=== PATIENT | male | born 1965 | race Caucasian/White ===

== ENCOUNTER 2017-03-17 14:57 | Inpatient (IN) | payer MEDICAID ==
[2017-03-17] MEDS ORDERED: ADENOSINE 6 MG/2 ML VIAL ONE (15:07)
--- NOTE | 2017-03-17 15:07 | EDPHY ---
HPI/HX/ROS/PE/MDM Narrative: CHIEF COMPLAINT: Shortness of breath, chest pain HISTORY OF PRESENT ILLNESS: This is a homeless 51 y/o male arriving via EMS for complaining of worsening shortness of breath and chest pain onset early this morning around 03:00, about 12 hours ago. Patient was noted to be tachypneic as well as tachycardic in the field. He received CPAP as well as Solu-Medrol in route. The patient denies any history of known respiratory or cardiac diseases. He has associated nausea and a baseline productive cough. He denies syncope, abdominal pain, fever, palpitations, vomiting, diarrhea, urinary complaints, headache, lightheadedness or other associated symptoms. REVIEW OF SYSTEMS: Aside from elements discussed in the HPI, a comprehensive 10-point review of systems was reviewed and is negative. PAST MEDICAL HISTORY: Denies history of cardiac disease. SOCIAL HISTORY: Homeless. Lives in [place]. Medicaid patient. No PCP. One alcoholic drink today. VITAL SIGNS: Reviewed by me. Axillary temp is 37.2 C, HR 170 GENERAL: Disheveled, malnourished, appears uncomfortable, very dyspneic and tachypneic. HEENT: Atraumatic. Eyes: Mild icterus, no injection. Mouth: Dry mucous membranes. No erythema or lesions. Neck: supple with no adenopathy. LUNGS: Crackles and rhonchi in mid and lower left lobe on auscultation, no wheezes. Tachypnea with few-word dyspnea. CARDIAC: Extreme tachycardia, no murmurs auscultated. ABDOMEN: Soft, nontender, nondistended, bowel sounds normal. BACK: No CVA tenderness. EXTREMITIES: No trauma. No edema. Range of motion is normal throughout. NEURO: Alert and oriented, grossly nonfocal. SKIN: Warm and dry, no rash. PSYCHIATRIC: Normal mentation, no agitation. Portions of this note were transcribed by a medical care manager. I personally performed a history, physical exam, medical decision making, and confirmed accuracy of information the transcribed note. ED Course: This is a 51 y/o male presenting with a 12-hour history of progressive dyspnea, tachypnea, and tachycardia. Plan for EKG, Chest X-ray, labs, and sepsis workup. The 12 lead EKG was interpreted by myself. There is a wide complex tachycardia at a rate of 167. No prior EKGs are available. Morphology appears to be a right bundle branch block, however no P waves are noted. See hard copy and/or "tracemaster" electronic copy for interpretation. Patient is awake and alert. Blood pressure is stable. Cardiology consulted for extreme wide complex tachycardia. Stat portable chest x-ray: 1518: Chest X-ray demonstrates significant left-sided infiltrate and probable pneumonia. Sepsis w orkup begun. IV ceftriaxone [address] Kristopher Verduzco evaluated the patient's EKGs and suggest that the patient may be in atrial flutter with right bundle branch block. Consideration for synchronous cardioversion verses rate control was discussed. After receiving some fluids the patient's heart rate has trended slowly down to the upper 150s. Diltiazem 20 mg was given IV. 1534: Patients labs are positive for elevated lactic acid 16. He is hypokalemic at 2.4. Patient meets severe sepsis criteria. 30 cc per kg bolus of normal saline was ordered. Patient received 60 mEq of potassium by mouth and 10 mEq IV. Patient's troponin is mildly elevated at 0.040. Echocardiogram ordered by Cardiology. Repeat EKG demonstrates sinus tachycardia with a right bundle branch block. Severe Sepsis/Septic Shock Care Note The patient presents to the ED with pneumonia identified as an acute infection. The patient did have evidence of end-organ dysfunction and met criteria for severe sepsis. This condition was identified by myself at time of arrival. The patients vital signs are 107/87, 159, 34, O2 sat 95% on 2 L, temperature 37.2. The patient has a venous lactic acid performed within 3 hours of the identification of severe sepsis which was found to be 16.0. The patient has blood cultures drawn and received ceftriaxone IV, per the severe sepsis treatment protocol. The initial lactate was elevated and rechecked within 6 hours of the identification time of severe sepsis and found to be: 14. The patient also met criteria for septic shock because of lactic acid greater than 4.0. The patient received a 30 mL/kg bolus within 3 hours. After this intervention, the patients hypotension did improve. Focused examination demonstrated 118/86, 154, 38, 38.2 degrees C., crackles on the left anterior and posterior chest, extreme tachycardia, normal capillary refill, rapid pulses , and cool skin. The patient was transferred to the ICU under the care of hospitalist Dr Infante. Critical care time spent by me, Dr. Young, exclusively with this patient was 60 minutes, exclusive of PA time and exclusive of procedures. The organ system at risk was cardiovascular and respiratory and I gave IV fluids, IV antibiotics , antiarrhythmics, and transferred the patient to the ICU to prevent worsening of the patient's condition. MDM: Differential diagnoses for the patient's symptom complex was considered including but not limited to respiratory failure, ARDS, overwhelming infection, pneumonia, immunocompromise, acute coronary syndrome, cardiovascular collapse, severe sepsis. - Data Points Imaging Results: Imaging Impressions Chest X-Ray 03/17/17 15:05 Impression: Suspect dense pneumonia in the left midlung. Recommend follow-up chest radiograph in 4-6 weeks. If the patient does not clinically appear to have pneumonia, consider CT the chest with IV contrast now to exclude underlying mass. Imaging: Discussed imaging studies w/ call center coordinator Radiologist, I viewed and interpreted images myself Laboratory Results: Laboratory Results 03/17/17 15:00 03/17/17 15:00 03/17/17 03/17/17 03/17/17 15:00 15:00 15:00 WBC 6.77 10^3/uL 10^3/uL (3.80-9.50) RBC 5.30 10^6/uL 10^6/uL (4.40-6.38) Hgb 18.9 g/dL H g/dL (13.7-17.5) Hct 53.2 % H % (40.0-51.0) MCV 100.4 fL H fL (81.5-99.8) MCH 35.7 pg H pg (27.9-34.1) MCHC 35.5 g/dL g/dL (32.4-36.7) RDW 15.3 % H % (11.5-15.2) Plt Count 37 10^3/uL L 10^3/uL (150-400) MPV 12.1 fL H fL (8.7-11.7) Neut % (Auto) Not Reported Lymph % (Auto) Not Reported Frontier % (Auto) Not Reported Eos % (Auto) Not Reported Baso % (Auto) Not Reported Nucleat RBC Rel Count 0.3 % H % (0.0-0.2) Absolute Neuts (auto) Not Reported Absolute Lymphs (auto) Not Reported Absolute Monos (auto) Not Reported Absolute Eos (auto) Not Reported Absolute Basos (auto) Not Reported Absolute Nucleated RBC 0.02 10^3/uL H 10^3/uL (0-0.01) Immature Gran % Not Reported Seg Neutrophils % 56 % % Band Neutrophils % 27 % % Lymphocytes % 4 % % Monocytes % 13 % % Immature Gran # Not Reported Absolute Seg Neuts 3.79 10^/uL 10^/uL (1.70-6.50) Absolute Band Neuts 1.83 10^3/uL H 10^3/uL (0.00-0.70) Absolute Lymphocytes 0.27 10^3/uL L 10^3/uL (1.00-3.00) Absolute Monocytes 0.88 10^3/uL H 10^3/uL (0.30-0.80) Platelet Estimate DECREASED L (ADEQ) Oval Macrocytes 2+ H PT 14.7 SEC SEC (12.0-15.0) INR 1.15 (0.83-1.16) APTT 33.0 SEC SEC (23.0-38.0) VBG Lactic Acid 16.0 mmol/L H mmol/L (0.7-2.1) Sodium Potassium Chloride Carbon Dioxide Anion Gap BUN Creatinine Estimated GFR Glucose Calcium Total Bilirubin Conjugated Bilirubin Unconjugated Bilirubin AST ALT Alkaline Phosphatase Troponin I Total Protein Albumin 03/17/17 15:00 WBC RBC Hgb Hct MCV MCH MCHC RDW Plt Count MPV Neut % (Auto) Lymph % (Auto) Frontier % (Auto) Eos % (Auto) Baso % (Auto) Nucleat RBC Rel Count Absolute Neuts (auto) Absolute Lymphs (auto) Absolute Monos (auto) Absolute Eos (auto) Absolute Basos (auto) Absolute Nucleated RBC Immature Gran % Seg Neutrophils % Band Neutrophils % Lymphocytes % Monocytes % Immature Gran # Absolute Seg Neuts Absolute Band Neuts Absolute Lymphocytes Absolute Monocytes Platelet Estimate Oval Macrocytes PT INR APTT VBG Lactic Acid Sodium 137 mEq/L mEq/L (134-144) Potassium 2.4 mEq/L L* mEq/L (3.5-5.2) Chloride 93 mEq/L L mEq/L (97-110) Carbon Dioxide 10 mEq/l L mEq/l (22-31) Anion Gap 34 mEq/L H mEq/L (8-16) BUN 6 mg/dL L mg/dL (7-23) Creatinine 1.4 mg/dL H mg/dL (0.7-1.3) Estimated GFR 53 Glucose 91 mg/dL mg/dL (70-100) Calcium 9.4 mg/dL mg/dL (8.5-10.4) Total Bilirubin 2.1 mg/dL H mg/dL (0.1-1.4) Conjugated Bilirubin 0.9 mg/dL H mg/dL (0.0-0.5) Unconjugated Bilirubin 1.2 mg/dL H mg/dL (0.0-1.1) AST 102 IU/L H IU/L (17-59) ALT 54 IU/L IU/L (21-72) Alkaline Phosphatase 200 IU/L H IU/L (38-126) Troponin I 0.040 ng/mL H ng/mL (0.000-0.034) Total Protein 6.8 g/dL g/dL (6.3-8.2) Albumin 3.7 g/dL g/dL (3.5-5.0) Medications Given: Chlordiazepoxide HCl (Librium) 25 mg PO TID [facility] Stop: 09/13/17 21:59 Last Admin: 03/17/17 21:03 Dose: 25 mg Hydrocortisone (Solucortef) 50 mg IV Q6H [facility] Stop: 09/13/17 17:14 Last Admin: 03/17/17 18:26 Dose: 50 mg Thiamine HCl 100 mg/ Sodium (Chloride) 101 mls @ 202 mls/hr IV Q6H [facility] Stop: 09/13/17 17:14 Last Admin: 03/17/17 18:27 Dose: 101 mls Levofloxacin/Dextrose (Levaquin 750 Mg (Premix)) 150 mls @ 100 mls/hr IV DAILY [facility] PRN Reason: Protocol Stop: 04/16/17 17:59 Last Admin: 03/17/17 19:10 Dose: 150 mls Ascorbic Acid 1,500 mg/ Sodium (Chloride) 103 mls @ 206 mls/hr IV Q6H [facility] Stop: 09/13/17 17:59 Last Admin: 03/17/17 18:36 Dose: 103 mls Ertapenem 1 gm/ Sodium (Chloride) 100 mls @ 200 mls/hr IV DAILY@1930 [facility] PRN Reason: Protocol Stop: 04/16/17 19:29 Last Admin: 03/17/17 19:49 Dose: 100 mls Lorazepam (Ativan Injection) 1 mg IVP Q4HRS PRN PRN Reason: Agitation Stop: 09/13/17 17:39 Last Admin: 03/17/17 18:27 Dose: 1 mg Nicotine (Nicoderm Cq) 14 mg TD DAILY [facility] Stop: 09/13/17 17:59 Last Admin: 03/17/17 20:05 Dose: 14 mg Discontinued Medications Chlordiazepoxide HCl (Librium) 50 mg PO ONCE ONE Stop: 03/17/17 17:41 Last Admin: 03/17/17 18:27 Dose: 50 mg Diltiazem HCl (Cardizem 25 Mg/5 Ml Vial) 20 mg IVP EDNOW ONE Stop: 03/17/17 15:48 Last Admin: 03/17/17 16:01 Dose: 20 mg Ceftriaxone Sodium/Dextrose (Rocephin 1 Gm (Premix)) 50 mls @ 100 mls/hr IV EDNOW ONE PRN Reason: Protocol Stop: 03/17/17 15:48 Last Admin: 03/17/17 15:29 Dose: 50 mls Amiodarone HCl (Amiodarone Hcl) 100 mls @ 600 mls/hr IV EDNOW ONE Stop: 03/17/17 15:36 Last Admin: 03/17/17 16:12 Dose: Not Given Sodium Chloride (Ns) 2,000 mls @ 4,000 mls/hr 30 ml/kg infuse over 30 min ( 2000 ml) IV EDNOW ONE PRN Reason: Protocol Stop: 03/17/17 16:05 Last Admin: 03/17/17 15:51 Dose: 2,000 mls Potassium Chloride (Potassium Cl 10 Meq (Premix)) 100 mls @ 100 mls/hr IV Q1H [facility] Stop: 03/17/17 17:59 Last Admin: 03/17/17 18:27 Dose: 100 mls Potassium Chloride (Potassium Cl 10 Meq (Premix)) 100 mls @ 100 mls/hr IV ONCE ONE Stop: 03/17/17 16:56 Last Admin: 03/17/17 16:03 Dose: 100 mls Potassium Chloride (Klor-Con) 40 meq PO ONCE ONE Stop: 03/17/17 15:50 Last Admin: 03/17/17 18:27 Dose: Not Given Potassium Chloride (Klor-Con) 20 meq PO ONCE ONE Stop: 03/17/17 15:57 Last Admin: 03/17/17 16:21 Dose: 20 meq Potassium Chloride (Klor-Con) 40 meq PO ONCE ONE Stop: 03/17/17 18:26 Last Admin: 03/17/17 19:12 Dose: 40 meq Sodium Bicarbonate (Sodium Bicarbonate) 100 meq IV ONCE ONE Stop: 03/17/17 20:31 Last Admin: 03/17/17 21:00 Dose: 100 meq General Initial Vital Signs: Initial Vital Signs Temperature (C) 37.2 C 03/17/17 14:57 Heart Rate 171 H 03/17/17 14:57 Respiratory Rate 23 H 03/17/17 14:57 Blood Pressure 111/76 03/17/17 14:57 O2 Sat (%) 94 03/17/17 14:57 O2 Delivery Mode Nasal Cannula O2 (L/minute) 4 Allergies/Adverse Reactions: No Known Allergies Allergy (Unverified 12/02/15 08:23) Home Medications: Medication Instructions Recorded NK [No Known Home Meds] 12/02/15 Departure - Departure Disposition: [facility] Inpatient Acute Clinical Impression: Shortness of breath, White complex tachycardia, Severe sepsis Pneumonia Qualifiers: Pneumonia type: due to unspecified organism Laterality: left Lung location: lower lobe of lung Qualified Code(s): J18.1 - Lobar pneumonia, unspecified organism Condition: Serious Report Scribed for: Daksha Young Report Scribed by: Faye Lopez Date of Report: 03/17/17 Time of Report: 19:55
--- NOTE | 2017-03-17 15:11 | CPEKG ---
Heart Rate: 167 RR Interval: 359 QRSD Interval: 132 QT Interval: 320 QTC Interval: 534 P [place]: 0 QRS [place]: 128 T Wave [place]: 61 EKG Severity - ABNORMAL ECG - EKG Impression: SINUS TACHYCARDIA EKG Impression: RBBB AND LPFB EKG Impression: CONSIDER INFERIOR INFARCT Electronically Signed By: Lance Wylie 18-Mar-2017 12:20:16
[2017-03-17] MEDS ORDERED: AMIODARONE HCL 100 ML IV ONE (15:27)
[2017-03-17] MEDS ORDERED: NS 2,000 ML IV ONE (15:36)
[2017-03-17 15:42] LABS: ALANINE AMINOTRANSFERASE 54 IU/L (21-72); ALBUMIN 3.7 g/dL (3.5-5.0); ALKALINE PHOSPHATASE 200 IU/L (38-126); ANION GAP 34 mEq/L (8-16); ASPARTATE AMINOTRANSFERASE 102 IU/L (17-59); BILIRUBIN,TOTAL 2.1 mg/dL (0.1-1.4); BILIRUBIN-CONJUGATED 0.9 mg/dL (0.0-0.5); BILIRUBIN-UNCONJUGATED 1.2 mg/dL (0.0-1.1); CALCIUM 9.4 mg/dL (8.5-10.4); CARBON DIOXIDE 10 mEq/l (22-31); CHLORIDE 93 mEq/L (97-110); CREATININE 1.4 mg/dL (0.7-1.3); GLOMERULAR FILTRATION RATE 53; GLUCOSE 91 mg/dL (70-100); SODIUM 137 mEq/L (134-144); TOTAL PROTEIN 6.8 g/dL (6.3-8.2)
[2017-03-17 15:44] LABS: ABSOLUTE NRBC COUNT 0.02 10^3/uL (0-0.01); ADD DIFF? YES; ADD MORPH? NO; ATYPICAL LYMPHOCYTE FLAG 0 (0-99); FRAGMENT RBC FLAG 0 (0-99); HEMATOCRIT 53.2 % (40.0-51.0); HEMOGLOBIN 18.9 g/dL (13.7-17.5); LIPEMIA HEMOLYSIS FLAG 90 (0-99); MEAN CELL HEMOGLOBIN 35.7 pg (27.9-34.1); MEAN CELL HEMOGLOBIN CONCENTR. 35.5 g/dL (32.4-36.7); MEAN CELL VOLUME 100.4 fL (81.5-99.8); MEAN PLATELET VOLUME 12.1 fL (8.7-11.7); NRBC-AUTO% 0.3 % (0.0-0.2); PLATELET CLUMPS FLAG 0 (0-99); RED CELL DISTRIBUTION WIDTH 15.3 % (11.5-15.2)
[2017-03-17 15:45] LABS: POTASSIUM 2.4 mEq/L (3.5-5.2)
[2017-03-17 15:46] LABS: INR 1.15 (0.83-1.16); PROTIME(PATIENT) 14.7 SEC (12.0-15.0)
[2017-03-17 15:47] LABS: ADD SCAN? NO; LEFT SHIFT FLG 300 (0-99); PLATELET COUNT 37 10^3/uL (150-400)
[2017-03-17] MEDS ORDERED: DILTIAZEM 25 MG/5 ML VIAL IVP ONE ×2 (15:47)
[2017-03-17] MEDS ORDERED: POTASSIUM CL 20 MEQ TAB PO ONE ×3 (15:49→18:25)
[2017-03-17] MEDS ORDERED: POTASSIUM Cl (KCl) 10 MEQ/100 ML BAG IV ONE (15:57)
[2017-03-17] MEDS ORDERED: POTASSIUM Cl (KCl) 100 ML IV ONE (15:57)
--- NOTE | 2017-03-17 16:17 | CPEKG ---
Heart Rate: 141 RR Interval: 426 P-R Interval: 108 QRSD Interval: 136 QT Interval: 360 QTC Interval: 552 P [place]: 0 QRS [place]: 107 T Wave [place]: 57 EKG Severity - ABNORMAL ECG - EKG Impression: SINUS TACHYCARDIA EKG Impression: RBBB AND LPFB Electronically Signed By: Lance Wylie 18-Mar-2017 12:19:55
[2017-03-17 16:32] LABS: MACROCYTES 2+; PLATELET ESTIMATE DECREASED (ADEQ)
--- NOTE | 2017-03-17 16:33 | ECHO ---
[id number] + + [address] : : [place] [address] : : [phone] + + Adult Echocardiographic Report + -+ :Name: Nishant TOBAR Date: 03/17/2017 04:11 PM : : Hospital Admission Number: [id number] Location: E R: :: 1965 Gender: Male : :Age: 51 yrs Race: WH,UN : :Reason For Study: sob elev trop : :History: sob tachy : + -+ MMode/2D Measurements & Calculations LVIDd: 4.0 cm FS: 23.8 % Ao root diam: 3.2 cm LVIDs: 3.0 cm EDV(Teich): 68.8 ml ESV(Teich): 35.8 ml EF(Teich): 48.0 % Normal Measurement Values: + + :LVIDd (3.5-5.7cm) IVSd (0.6-1.1cm) LVPWd (0.6-1.1cm) Aortic Root (2.0-3.7cm)Left Atrium (1.5-4.0cm): :LV Vol(d) (76-115ml) LV Vol(s) (29-48ml) Ejec Fraction (50-65%)PV Gilbert (0.6- 1.2m/s) TV [place] (0.4-1.0m/s) : :MV E [place] (0.8-1.0m/s)MV A [place] (0.3-1.0m/s)LVOT [place] (0.7-1.2m/s) Asc Ao Gilbert ( 0.9-1.8m/s) : + + Doppler Measurements & Calculations Ao V2 max: 143.9 cm/sec LV V1 max: 104.6 cm/sec Ao max P.3 mmHg LV V1 max P.4 mmHg Left Ventricle The left ventricle is normal in size. The left ventricular ejection fraction is normal. Septal motion is consistent with conduction abnormality. Right Ventricle The right ventricle is normal in size and function. Atria The left atrial size is normal. Right atrial size is normal. Mitral Valve The mitral valve is normal in structure and function. There is no mitral valve stenosis. There is no mitral regurgitation noted. Tricuspid Valve The tricuspid valve is normal in structure and function. There is no tricuspid stenosis. No tricuspid regurgitation. Aortic Valve The aortic valve is not well visualized. There is no aortic stenosis. There is no aortic insufficiency. Pulmonic Valve The pulmonic valve is not well visualized. Great Vessels The aortic root is normal size. Pericardium/Pleural There is no pericardial effusion. Conclusion A two-dimensional transthoracic echocardiogram with M-mode and Doppler was performed. The study was technically difficult. Tachycardia. The left ventricular ejection fraction is normal. Final Reading Physician: Pedro Brown signed on 03/17/2017 04:31 PM Ordering Physician: Miller Pitts Performed By: Lovely Gutierrez
[2017-03-17] MEDS: POTASSIUM Cl (KCl) 100 ML IV SCH ×2 (16:59→18:27)
[2017-03-17 17:03] LABS: COLOR YELLOW; LEUKOCYTE ESTERASE,URINE NEGATIVE (NEGATIVE); NITRITE,URINE NEGATIVE (NEGATIVE)
[2017-03-17 17:08] LABS: HYALINE CASTS 15-25 /lpf (0-1); MUCUS TRACE /lpf (NONE-1+); RBC,URINE 50-182 /hpf (0-3)
[2017-03-17] MEDS ORDERED: ONDANSETRON DISINTEGRATING 4 MG TAB PO PRN (17:14)
[2017-03-17] MEDS ORDERED: ACETAMINOPHEN 325 MG TAB PO PRN (17:14)
[2017-03-17] MEDS ORDERED: ONDANSETRON 4 MG/2 ML VIAL IVP PRN (17:14)
[2017-03-17] MEDS ORDERED: [UNRECOGNIZED DRUG - REMARK] IV SCH (17:15)
[2017-03-17] MEDS ORDERED: NS 1,000 ML IV SCH (17:15)
--- NOTE | 2017-03-17 17:38 | GHP ---
[f rep st] HISTORY AND PHYSICAL DATE OF ADMISSION: 03/17/2017 CHIEF COMPLAINT: Tachycardia, shortness of breath. HISTORY OF PRESENT ILLNESS: This is a 51-year-old homeless gentleman who came to the [facility] by EMS. Apparently he had been having shortness of breath for at least a night. Chest x-ray here shows a significant left pneumonia. His EKG shows a tachycardia with a probable underlying rig ht bundle branch block. After fluids sinus tachycardia was diagnosed. We subsequently got an echoca rdiogram that showed hyperdynamic LV function. No pericardial effusion. Some dyssynchrony of the se ptal wall, but no clear-cut ischemia. The patient after receiving approximately 3 units of fluid sta rted to urinate and he is speaking at this time. He is feeling better. He is not having any chest p ain or other issues. He takes no medicines. His laboratory profile had a lactic acid of 16 and a potassium of 2.4. He is on a sepsis protocol pe r the hospitalist. His BUN is 6, his creatinine is 1.4. His white count is 6 and hemoglobin of 18. PAST MEDICAL HISTORY: Noncontributory. REVIEW OF SYSTEMS: Patient is homeless and denies any ongoing active GI bleed, chest pain, or other issues at this point. He seems to be resting comfortably, but does not appear to engage in active ans wering of multiple questions. PHYSICAL EXAMINATION: GENERAL: Disheveled, middle-aged male. LUNGS: Showed abnormal breath sounds in the left midlobe. HEART: He had a tachycardic rhythm. Had no edema. EXTREMITIES: He moved al l extremities. NEUROLOGIC: He was answering questions appropriately and voicing no complaints. ASSESSMENT: 1. Tachycardia with abnormal EKG. I suspect the patient has an underlying right bundle branch block pattern with what appears to be a sinus tachycardia at this time. He is receiving fluids. Echocard iogram shows normal LV function without clear-cut ischemic wall motion abnormality or significant kathy vular heart disease. The patient should be able to tolerate volume loading. 2. Probable left lobe pneumonia with a sepsis profile. This is being followed by the ER physician rayray hernandez the torpedo shooter. 3. Homelessness. Suspect alcoholism at least looking at the note from the emergency room physician. PLAN: Continue fluid support at this time. Rhythm control. We will deal with other arrhythmias as needed. Once patient is through infectious etiology, can further discuss more. If he is having any ongoing cardiac symptoms which he is not relating at this time, possibly exercise stress testing coul d be indicated, but at this point no need for cardiac acute intervention. The case was discussed with Dr. Young and Dr. Infante. /[id number]/MODL
[2017-03-17] MEDS ORDERED: chlordiazePOXIDE 25 MG CAP PO ONE (17:40)
--- NOTE | 2017-03-17 18:23 | GHP ---
[f rep st] HISTORY AND PHYSICAL DATE OF ADMISSION: 03/17/2017 CHIEF COMPLAINT: Shortness of breath and chest pain. HISTORY OF PRESENT ILLNESS: A 51-year-old male with limited past medical history, currently homeless , who presents with his report sudden onset of shortness of breath, nonproductive cough, and left-oracio ed chest pain. The patient reports being in his normal state of health the day prior to presentation with no limitations in his activity secondary to shortness of breath. The patient then developed brody dden onset. The patient denies any nausea, vomiting. Denies any changes in his bowel habits, diarrh ea, blood in his stools, dysuria. Does endorse muscle aches and pains and subjective fevers and chil ls. PAST MEDICAL HISTORY: None. SOCIAL HISTORY: Patient smokes a half a pack of cigarettes per day. Reports 2 beers per day. Denie s illicit drugs or marijuana. FAMILY HISTORY: Negative per his report of lung and heart disease. REVIEW OF SYSTEMS: A 10-point review of systems is negative with the exception of that reported in t he HPI. PHYSICAL EXAMINATION: VITAL SIGNS: Blood pressure is 109/78, heart rate 159, respiratory rate 34, 9 3% on 2 L. Febrile at 38.3. GENERAL: This is a disheveled man, tremulous in bed. HEENT: Notable for poor dentition. Dry mucous membranes. Eye exam is negative for any icterus. CARDIAC: Patient is tachycardic but regular. PULMONARY: Has rhonchi at bilateral bases, left greater than right. No wheezing is appreciated. GASTROINTESTINAL: Positive bowel sounds. ABDOMEN: Soft. MUSCULOSKELETA L: Negative for any lower extremity edema. SKIN: Negative for any rashes. NEUROLOGIC: Patient is very tremulous with tongue fasciculations. Appears alert and oriented x3. PSYCHIATRIC: Cooperativ e on interview and examination. DATA: White count 6.7, hematocrit 53.2, MCV 104, platelet count of 37. Sodium 137, potassium 2.4, c reatinine 1.4. Anion gap is 34. BUN of 6. Troponin 0.040. Urinalysis shows 50 to 182 red blood ce lls with very elevated hyaline casts. Chest x-ray, which I personally reviewed and interpreted, show s a lobular infiltrate on the left. EKG, which I personally reviewed and interpreted, shows sinus ta chycardia with right bundle branch block. Heart rate in the 140s. ASSESSMENT AND PLAN: This is a 51-year-old male, presenting with shortness of breath and tachycardia . 1. Sepsis. The patient is tachycardic, febrile, presumed source pulmonary. Will empirically treat with intravenous antibiotics. Blood cultures have been obtained from the emergency department, aggre ssive fluid resuscitation, and the sepsis protocol has been initiated. Intravenous steroids have bee n started by Pulmonary Critical Care as well as intravenous vitamin supplementation. 2. Sinus tachycardia. I suspect this is likely multifactorial, both dehydration, sepsis, and underl kamilah alcohol withdrawal. We will treat all 3 and follow patient's heart rates. Cardiology has evalu ated the patient in the emergency department. The patient has stable blood pressures and will not be cardioverted at this time. They have recommended the use of diltiazem if needed overnight. 3. Alcohol use/abuse. Suspect the patient's intake is higher than he originally describes as he is tremulous with tongue fasciculations on examination, has a macrocytosis, thrombocytopenia. Will init iate the Clinical [place] Withdrawal Assessment protocol with Librium and p.r.n. Ativan. Follow th e patient's vital signs closely. The patient is receiving intravenous thiamine appropriately upon ar rival to the floor. 4. Severe thrombocytopenia. Suspect this may be marrow related from alcohol abuse. The patient is not acutely bleeding. We will hold Lovenox prophylaxis at this time and follow patient clinically. 5. Acute kidney injury, suspect secondary to hypovolemia. We will fluid resuscitate and recheck. 6. Anion gap metabolic acidosis secondary to lactic acid. The patient is receiving aggressive fluid resuscitation. We will follow the patient's acid/base in a few hours. 7. Hypokalemia. Suspect likely nutritionally related. Patient denies any diarrhea or nausea and vo miting. The patient is receiving both p.o. and intravenous repletion. Will follow patient's electro lytes closely overnight. 8. Transaminitis, mild elevation in the AST with a total bilirubin of 2.1. This would be consistent with alcohol based pattern. Can recheck in the morning. 9. Indeterminate troponin. Patient is quite tachycardic upon presentation, likely demand ischemia. We will follow the patient's troponins overnight. Would not stress test at this time. Wait to foll ow his symptoms when we have his heart rates under better control. 10. Macrocytosis. Suspect this is likely alcohol related. Patient is receiving intravenous thiamin e. Can check B12 and folate. 11. Prophylaxis. Holding Lovenox secondary to severe thrombocytopenia. DIET: Regular as tolerated. DISPOSITION: I expect greater than 2 midnights as the patient is presenting septic from a pulmonary source. I have discussed the case with the emergency room physician and Cardiology. Patient will be triaged to the ICU for aggressive treatment of sepsis. /[id number]/MODL
[2017-03-17] MEDS: HYDROCORTISONE 100 MG/2 ML VIAL IV SCH (18:26)
[2017-03-17] MEDS: LORazepam 2 MG/ML INJ IVP PRN (18:27)
[2017-03-17] MEDS: THIAMINE HCL 100 MG in NS 100 ML IV SCH (18:27)
[2017-03-17] MEDS: NS IV SCH (18:36)
[2017-03-17] MEDS: ASCORBIC ACID IV SCH (18:36)
[2017-03-17] MEDS ORDERED: ERTAPENEM 1 GM in NS 100 ML IV SCH (19:30)
[2017-03-17 20:04] LABS: BICARBONATE 12 mEq/L (22-26); MEASURED OXYGEN SATURATION 93 % (92-95); PCO2 33 mmHg (34-38); PO2 88 mmHg (65-75); TCO2 13 mEq/L (23-27)
[2017-03-17] MEDS: NICOTINE 14 MG/24 HR PATCH TD SCH (20:05)
[2017-03-17 20:08] LABS: O2 CONCENTRATIION 15 % (0-100); P/F RATIO 587 RATIO
[2017-03-17 20:13] LABS: ANION GAP 20 mEq/L (8-16); CALCIUM 7.5 mg/dL (8.5-10.4); CARBON DIOXIDE 14 mEq/l (22-31); CHLORIDE 103 mEq/L (97-110); CREATININE 1.1 mg/dL (0.7-1.3); GLOMERULAR FILTRATION RATE > 60; GLUCOSE 77 mg/dL (70-100); SODIUM 137 mEq/L (134-144)
[2017-03-17 20:28] LABS: POTASSIUM 2.7 mEq/L (3.5-5.2)
[2017-03-17] MEDS ORDERED: NA BICARBONATE 50 MEQ/50 ML VIAL IV ONE ×2 (20:30→23:50)
[2017-03-17] MEDS: chlordiazePOXIDE 25 MG CAP PO SCH (21:03)
[2017-03-17 21:37] LABS: MIXED VENOUS O2 SATURATION 87 % (65-75)
[2017-03-17] MEDS ORDERED: PROTOCOL MAGNESIUM 1 DOSE IV PRN (22:57)
[2017-03-17] MEDS ORDERED: NOREPINEPHRINE/NS 4 MG/500 ML BAG IV ONE (23:15)
[2017-03-17] MEDS ORDERED: NOREPINEPHRINE/NS 500 ML IV SCH (23:30)
[2017-03-17] MEDS ORDERED: ACETAMINOPHEN 650 MG SUPP PR PRN (23:30)
[2017-03-17 23:40] LABS: BASE EXCESS -12.6 mEq/L (-2.5-2.5); BICARBONATE 17 mEq/L (22-26); MEASURED OXYGEN SATURATION 88 % (92-95); PCO2 54 mmHg (34-38); PO2 73 mmHg (65-75); TCO2 19 mEq/L (23-27)
[2017-03-17 23:41] LABS: O2 CONCENTRATIION 100 % (0-100); P/F RATIO 73 RATIO
[2017-03-17 23:48] LABS: % IMMATURE GRANULYOCYTES 0.6 % (0.0-1.1); ABSOLUTE IMMATURE GRANULOCYTES 0.01 10^3/uL (0.00-0.10); ABSOLUTE NRBC COUNT 0.02 10^3/uL (0-0.01); ADD DIFF? NO; ADD MORPH? YES; ADD SCAN? YES; ATYPICAL LYMPHOCYTE FLAG 0 (0-99); FRAGMENT RBC FLAG 0 (0-99); HEMATOCRIT 43.7 % (40.0-51.0); HEMOGLOBIN 14.6 g/dL (13.7-17.5); LIPEMIA HEMOLYSIS FLAG 80 (0-99); MEAN CELL HEMOGLOBIN 35.6 pg (27.9-34.1); MEAN CELL HEMOGLOBIN CONCENTR. 33.4 g/dL (32.4-36.7); MEAN CELL VOLUME 106.6 fL (81.5-99.8); MEAN PLATELET VOLUME 11.5 fL (8.7-11.7); PLATELET CLUMPS FLAG 10 (0-99); RED CELL DISTRIBUTION WIDTH 15.4 % (11.5-15.2)
[2017-03-17 23:52] LABS: LEFT SHIFT FLG 300 (0-99); NRBC-AUTO% 1.3 % (0.0-0.2)
[2017-03-17 23:53] LABS: PLATELET COUNT 18 10^3/uL (150-400)
[2017-03-17 23:57] LABS: INR 1.68 (0.83-1.16); PROTIME(PATIENT) 19.8 SEC (12.0-15.0)
[2017-03-17 23:58] LABS: APTT 48.1 SEC (23.0-38.0)
[2017-03-18 00:03] LABS: ANION GAP 9 mEq/L (8-16); CALCIUM 6.6 mg/dL (8.5-10.4); CARBON DIOXIDE 19 mEq/l (22-31); CHLORIDE 110 mEq/L (97-110); CREATININE 0.8 mg/dL (0.7-1.3); GLOMERULAR FILTRATION RATE > 60; SODIUM 138 mEq/L (134-144)
[2017-03-18 00:19] LABS: GLUCOSE 25 mg/dL (70-100)
[2017-03-18 00:20] LABS: MAGNESIUM 0.7 mg/dL (1.6-2.3)
[2017-03-18] MEDS ORDERED: MAGNESIUM SULF 2 GM/WATER 50 ML IV ONE (00:25)
[2017-03-18] MEDS ORDERED: D10W 250 ML PRN HYPOGLYCEMIA IV ONE ×2 (00:30→05:15)
[2017-03-18] MEDS ORDERED: PROTOCOL POTASSIUM 1 DOSE MISC PRN ×2 (01:00)
[2017-03-18] MEDS: HYDROCORTISONE 100 MG/2 ML VIAL IV SCH ×4 (01:08→18:37)
[2017-03-18] MEDS: ASCORBIC ACID IV SCH ×4 (01:09→19:02)
[2017-03-18] MEDS: NS IV SCH ×4 (01:09→19:02)
[2017-03-18] MEDS: THIAMINE HCL 100 MG in NS 100 ML IV SCH ×4 (01:09→18:37)
[2017-03-18 01:18] LABS: SCAN POSITIVE
[2017-03-18 01:30] LABS: BASE EXCESS -10.4 mEq/L (-2.5-2.5); BICARBONATE 17 mEq/L (22-26); MEASURED OXYGEN SATURATION 92 % (92-95); PCO2 41 mmHg (34-38); PO2 75 mmHg (65-75); TCO2 18 mEq/L (23-27)
[2017-03-18 01:32] LABS: BIPAP YES; O2 CONCENTRATIION 70 % (0-100); P/F RATIO 107 RATIO
[2017-03-18 01:33] LABS: EXP PRESSURE 5; INSP PRESSURE 18
[2017-03-18] MEDS: POTASSIUM Cl (KCl) 50 ML IV SCH ×5 (01:33→15:43)
[2017-03-18 01:39] LABS: MACROCYTES 1+; PLATELET ESTIMATE DECREASED (ADEQ)
[2017-03-18 02:37] LABS: BASE EXCESS -7.3 mEq/L (-2.5-2.5); BICARBONATE 18 mEq/L (22-26); MEASURED OXYGEN SATURATION 96 % (92-95); PCO2 37 mmHg (34-38); PO2 92 mmHg (65-75); TCO2 19 mEq/L (23-27)
[2017-03-18 02:38] LABS: BIPAP YES; EXP PRESSURE 5; INSP PRESSURE 18; O2 CONCENTRATIION 70 % (0-100); P/F RATIO 131 RATIO
[2017-03-18 04:39] LABS: HEMATOCRIT 49.5 % (40.0-51.0); HEMOGLOBIN 16.9 g/dL (13.7-17.5); LIPEMIA HEMOLYSIS FLAG 90 (0-99); MEAN CELL HEMOGLOBIN 35.8 pg (27.9-34.1); MEAN CELL HEMOGLOBIN CONCENTR. 34.1 g/dL (32.4-36.7); MEAN CELL VOLUME 104.9 fL (81.5-99.8); PLATELET CLUMPS FLAG 0 (0-99); RED BLOOD CELL COUNT 4.72 10^6/uL (4.40-6.38); RED CELL DISTRIBUTION WIDTH 15.6 % (11.5-15.2)
[2017-03-18 04:50] LABS: PLATELET COUNT 12 10^3/uL (150-400)
[2017-03-18 04:58] LABS: ANION GAP 11 mEq/L (8-16); CALCIUM 7.2 mg/dL (8.5-10.4); CARBON DIOXIDE 20 mEq/l (22-31); CHLORIDE 112 mEq/L (97-110); CREATININE 0.7 mg/dL (0.7-1.3); GLOMERULAR FILTRATION RATE > 60; MAGNESIUM 1.5 mg/dL (1.6-2.3); POTASSIUM 4.5 mEq/L (3.5-5.2); SODIUM 143 mEq/L (134-144)
[2017-03-18 05:05] LABS: TROPONIN I 0.284 ng/mL (0.000-0.034)
[2017-03-18 05:07] LABS: GLUCOSE 21 mg/dL (70-100)
[2017-03-18] MEDS ORDERED: MAGNESIUM SULF 1 GM/DEXTROSE 100 ML IV ONE ×2 (05:20→10:07)
[2017-03-18 05:30] LABS: PLATELET ESTIMATE DECREASED (ADEQ)
[2017-03-18] MEDS: D5W 1/2 NS 1,000 ML IV SCH (06:30)
[2017-03-18 06:33] LABS: BASE EXCESS -8.3 mEq/L (-2.5-2.5); BICARBONATE 16 mEq/L (22-26); MEASURED OXYGEN SATURATION 93 % (92-95); PCO2 33 mmHg (34-38); PO2 71 mmHg (65-75); TCO2 17 mEq/L (23-27)
[2017-03-18 06:41] LABS: BIPAP YES; EXP PRESSURE 5; INSP PRESSURE 18
--- NOTE | 2017-03-18 08:00 | CPEKG ---
Heart Rate: 159 RR Interval: 377 QRSD Interval: 130 QT Interval: 336 QTC Interval: 547 P [place]: 0 QRS [place]: 124 T Wave [place]: 62 EKG Severity - ABNORMAL ECG - EKG Impression: SINUS TACHYCARDIA EKG Impression: RBBB AND LPFB EKG Impression: ANTERIOR INFARCT, POSSIBLY ACUTE Electronically Signed By: [place] 19-Mar-2017 09:49:18
[2017-03-18] MEDS: chlordiazePOXIDE 25 MG CAP PO SCH ×3 (08:09→21:56)
[2017-03-18] MEDS: NICOTINE 14 MG/24 HR PATCH TD SCH (08:09)
[2017-03-18] MEDS ORDERED: cefTRIAXone 2 GM in D5W 50 ML IV SCH (09:00)
[2017-03-18] MEDS ORDERED: ENOXAPARIN 40 MG/0.4 ML SYR SC SCH (09:00)
--- NOTE | 2017-03-18 09:22 | SOAPPROG ---
SOAP Progress Note Assessment/Plan: Assessment:1.sinus tachycardia...no identified arrhythmias otherwise noted overnight..will get ekg this morning 2. inderminant trop..probably secondary to supply/demand mismatch and sepsis..no h/o cad and pt without cp 3. sepsis...severe on multiple meds and followed by intensive service Plan:1. call us if any changes in cardiac condition..d/w dr wiggins 03/18/17 09:17 Subjective: pt awake and answers simple questions..no chest pain...monitor reveals sinus tachycardia....indeterminate trops Objective: Vital Signs Temp Pulse Resp BP Pulse Ox 36.9 C 119 H 33 H 109/81 H 98 03/18/17 07:00 03/18/17 07:00 03/18/17 07:00 03/18/17 07:00 03/18/17 07:00 Microbiology 03/17/17 16:20 Respiratory Panel (PCR) - Final Nasal, Sinus - Swab No Organism Detected Laboratory Results 03/18/17 04:30 03/18/17 04:30 03/17/17 03/18/17 03/19/17 05:59 05:59 05:59 Intake Total 7702.5 Output Total 1775 Balance 5927.5 PT 19.8 SEC (12.0-15.0) H 03/17/17 23:37 INR 1.68 (0.83-1.16) H 03/17/17 23:37 Physical Exam - Physical Exam Respiratory: rhonchi Cardiac/Chest: tachycardia, No edema ICD10 Worksheet Patient Problems: Problems Problem Status Onset Pneumonia Acute Severe sepsis Acute Shortness of breath Acute
--- NOTE | 2017-03-18 11:07 | CPEKG ---
Heart Rate: 124 RR Interval: 484 P-R Interval: 136 QRSD Interval: 138 QT Interval: 320 QTC Interval: 460 P [place]: 64 QRS [place]: 125 T Wave [place]: 20 EKG Severity - ABNORMAL ECG - EKG Impression: SINUS TACHYCARDIA EKG Impression: RBBB AND LPFB Electronically Signed By: Lance Wylie 18-Mar-2017 12:19:48
--- NOTE | 2017-03-18 11:18 | HOSPPROG ---
Hospitalist Progress Note Assessment/Plan: # septic shock - on levophed; sourcs is pna and bacteremia - cont ICU monitoring, check nicom, cont steroids # bacteremia - currently growing acinetobacter - on invanz/levaquin - ID consult # pneumonia - on invanz/levaquin # acuter respiratory failure d/t pneumonia - ICU monitoring, pulm following # elevated troponin - suspect d/t demand - echo ok # marked thrombocytopenia - suspect underlying BM suppression and superimposed DIC - check DIC panel - will transfuse plts given +FOBT - check abd US # marked hypoglycemia # etOH abuse - suspect he will have significant w/d - cont CIWA # elevated LFTs - check RUQ US, check hep serologies # acidosis - resolving with aggressive IVF # electrolyte abnormalities - replete Subjective: placed on pressors overnight; tells me he needs to get out of the moose-potty Objective: Vital Signs Temp Pulse Resp BP Pulse Ox 37.8 C 114 H 35 H 104/69 91 L 03/18/17 10:00 03/18/17 10:00 03/18/17 10:00 03/18/17 10:00 03/18/17 10:00 Microbiology 03/17/17 23:00 Gastrointestinal Tract Panel (PCR) - Final Stool No Organism Detected 03/17/17 16:20 Respiratory Panel (PCR) - Final Nasal, Sinus - Swab No Organism Detected Laboratory Results 03/18/17 04:30 03/18/17 04:30 03/17/17 03/18/17 03/19/17 05:59 05:59 05:59 Intake Total 7702.5 Output Total 1775 Balance 5927.5 PT 19.8 SEC (12.0-15.0) H 03/17/17 23:37 INR 1.68 (0.83-1.16) H 03/17/17 23:37 40 minutes of bedside and floor CC time spent managing septic shock - Physical Exam Constitutional: chronically ill appearing Cardiovascular: regular rate and rhythym, no murmur, rub, or gallop Respiratory: other (mod resp distress; diffuse crackles) Gastrointestinal: normoactive bowel sounds, soft, non-tender abdomen ICD10 Worksheet Patient Problems: Problems Problem Status Onset Pneumonia Acute Severe sepsis Acute Shortness of breath Acute
[2017-03-18 12:32] LABS: ADD DIFF? YES; ADD MORPH? NO; ADD SCAN? YES; ATYPICAL LYMPHOCYTE FLAG 0 (0-99); FRAGMENT RBC FLAG 0 (0-99); HEMATOCRIT 45.7 % (40.0-51.0); HEMOGLOBIN 15.8 g/dL (13.7-17.5); LIPEMIA HEMOLYSIS FLAG 90 (0-99); MEAN CELL HEMOGLOBIN 36.2 pg (27.9-34.1); MEAN CELL HEMOGLOBIN CONCENTR. 34.6 g/dL (32.4-36.7); MEAN CELL VOLUME 104.8 fL (81.5-99.8); MEAN PLATELET VOLUME 12.8 fL (8.7-11.7); RED BLOOD CELL COUNT 4.36 10^6/uL (4.40-6.38); RED CELL DISTRIBUTION WIDTH 15.9 % (11.5-15.2)
[2017-03-18 12:34] LABS: LEFT SHIFT FLG 300 (0-99); PLATELET CLUMPS FLAG 220 (0-99)
[2017-03-18 12:40] LABS: POTASSIUM 3.6 mEq/L (3.5-5.2)
[2017-03-18] MEDS: MEROPENEM 1 GM in NS 100 ML IV SCH ×2 (12:47→21:56)
[2017-03-18 12:50] LABS: INR 1.67 (0.83-1.16); PROTIME(PATIENT) 19.7 SEC (12.0-15.0)
[2017-03-18 12:51] LABS: APTT 41.2 SEC (23.0-38.0)
[2017-03-18 13:08] LABS: PLATELET COUNT 15 10^3/uL (150-400)
[2017-03-18 13:21] LABS: GIANT PLATELETS PRESENT; PLATELET ESTIMATE DECREASED (ADEQ)
[2017-03-18 13:22] LABS: PLATELET COUNT 15 10^3/uL (150-400)
[2017-03-18 13:30] LABS: FIBRINOGEN 356 mg/dL (214-456)
--- NOTE | 2017-03-18 13:34 | GCON ---
[f rep st] CONSULTATION INFECTIOUS DISEASE CONSULTATION DATE OF CONSULTATION: 03/18/2017 REFERRING PHYSICIAN: Jude Triplett MD REASON FOR CONSULTATION: Acinetobacter bacteremia and pneumonia, recommend an antibiotic therapy. HISTORY OF PRESENT ILLNESS: This is a 51-year-old male, who has minimal past medical history, who is currently homeless, who presents to the emergency room yesterday with sudden onset of shortness of breath, cough, and left-sided chest pain. He denies any nausea, vomiting, diarrhea, or rash. He denies any urinary symptoms. He has myalgias and subjective fever. History is difficult due to patient's dyspnea. PAST MEDICAL HISTORY: None. SOCIAL HISTORY: Patient smokes cigarettes, half pack a day. He is currently living in [place], previous to this, he lived in [place], and was working for the [employer], but currently is not working. He does drink alcohol. He is unable to characterize how much daily. No illicit drugs or marijuana. FAMILY HISTORY: Has no family history of lung disease. ALLERGIES: NKDA. MEDICATIONS: The patient received levofloxacin 750 daily, started 03/17/2017. He received a dose of ceftriaxone on 03/17/2017, and was started on ertapenem . He is also on Tylenol, Librium, Solu-Cortef, lorazepam as needed, NicoDerm, norepinephrine, Zofran, potassium protocol, and thiamin. REVIEW OF SYSTEMS: A complete 10-point review of systems was performed and is negative except as mentioned in the HPI. PHYSICAL EXAM: VITAL SIGNS: The patient's blood pressure is 95/58, heart rate 126, respiratory rate is 40, saturation 94% on 6 L, temperature 36.8, T-max is 38.4. GENERAL: This is a somewhat disheveled, tanned male, who is very dyspneic, and has difficulty talking due to dyspnea. HEENT: Minimal residual teeth, no oral ulcerations or exudates. Mucosal membranes were moist. NECK: Supple. CARDIOVASCULAR: Tachycardic. Regular rate. CHEST: Crackles, left side up to 1/[address], the right side 1/[address] ABDOMEN: He had some mild retractions. Nontender. No distention. Bowel sounds are present. EXTREMITIES : No clubbing, cyanosis, or edema. Significant material under his fingernails. No splinter hemorrhages or Jan[place]ay lesions. NEUROLOGIC: He is moving all 4 extremities equally and is responding to questions appropriately, albeit slowly due to shortness of breath. LABORATORY: White count is 1.7, hematocrit 49, platelets of 12. Differential on WBCs yesterday with 16% neutrophils and 51% bands. Creatinine is 0.7. AST 102, ALT 54, alk phos 200. He also had elevated troponins. His procalcitonin was 13.6. Blood cultures 1/2 grew Acinetobacter baumannii. Respiratory PCR was negative. GI panel was negative. Urine culture is pending. IMAGING: Chest x-ray was personally reviewed by me, which shows a dense infiltrate in the left mid lung and bibasilar atelectasis. Echocardiogram was also performed, which showed tachycardia, normal ejection fraction and no obvious valvular abnormalities. ASSESSMENT AND PLAN: This is a 51-year-old male, who presents with sepsis ( leukopenia, elevated LFTs, hypotension/tachycardia, hypoxia), who is found to have dense left-sided pneumonia, with corresponding bacteremia, which preliminarily appears to be Acinetobacter. No clear risk factors for developing pneumonia or bacteremia due to Acinetobacter, as patient has not received antibiotics in years, nor has been hospitalized. The patient continues to have significant shortness of breath, and is requiring pressor support. 1. Antibiotic recommendations: Due to more resistant nature of Acinetobacter, it is recommended to give dual therapy in the setting of sepsis to increase the likelihood of treatment from the beginning, would recommend meropenem, plus fluoroquinolone. Would discontinue ertapenem. With patient's normal renal function, can give meropenem 1 g IV q.8. 2. Obtain sputum to document corresponding pathogen in both the pneumonia and blood cultures. 3. Screen HIV. Hepatitis serologies are already ordered. The patient's care was coordinated with critical care team and hospitalist. Thank you for this consultation. We will continue to follow on a daily basis. /[id number]/MODL MTDD
--- NOTE | 2017-03-18 14:30 | PDINTPN ---
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 Now on NE due to hypotension despite>6 liters IVF. Blood C Acinetobacter. On CTX/Levo, CTX now changed to Meropenem. Hypercarbic and hypoxemic respiratory failure: Due to pneumonia and fluid resuscitation, worsened overnight. Responded to BiPAP last night, now on oxymask. Thrombocytopenia: Severe, Plt falling. +FOB, but no gross active bleeding apparent, but no other signs of active bleeding. Hypoglycemia: ? underlying hepatic dysfunction. Improved with D5. ? EtOH: No signs of significant withdrawal, got some benzo's overnight. Hypokalemia: Resolved with replacement Sinus tachycardia: Improved with treatment of sepsis, but still quite tachycardic. Plan: Fluid challenge with NICOM. Continue antibiotics per ID. Transfuse Platelets. Continue FMO2 as needed. May still need intubation. 45 minutes CC time managing life threatening septic shock, responding to labs and hypotension. 03/18/17 14:59 03/18/17 15:04 Subjective: Feels a bit better, but still quite dyspneic. Denies withdrawal symptoms. Objective: Vital Signs Temp Pulse Resp BP Pulse Ox 38.2 C 122 H 25 H 89/53 L 92 03/18/17 13:00 03/18/17 13:00 03/18/17 13:00 03/18/17 13:00 03/18/17 13:00 Microbiology 03/17/17 23:00 Gastrointestinal Tract Panel (PCR) - Final Stool No Organism Detected 03/17/17 16:20 Respiratory Panel (PCR) - Final Nasal, Sinus - Swab No Organism Detected Laboratory Results 03/18/17 12:31 03/18/17 12:23 03/17/17 03/18/17 03/19/17 05:59 05:59 05:59 Intake Total 7702.5 Output Total 1775 Balance 5927.5 PT 19.7 SEC (12.0-15.0) H 03/18/17 12:31 INR 1.67 (0.83-1.16) H 03/18/17 12:31 CXR: More dense and extensive consolidation L>R. Images reviewed. Laboratory Tests 03/17/17 03/17/17 03/18/17 17:21 23:30 06:25 pCO2 54 H 33 L pO2 73 71 Total CO2 19 L 17 L ABG pH 7.13 L* 7.32 L ABG HCO3 17 L ABG Lactic Acid 7.2 H 5.6 H Total O2 Concentration 50.0 O2 Concentration % 100 Procalcitonin 13.60 H Microbiology 03/17/17 15:20 Blood Blood Panel (PCR) - Final Acinetobacter Baumannii 03/17/17 15:20 Blood Blood Culture - Preliminary Laboratory Tests 03/18/17 12:31 INR 1.67 H Physical Exam - Physical Exam General Appearance: alert, mild distress EENT: normal ENT inspection Neck: normal inspection Respiratory: crackles, wheezing Cardiac/Chest: regular rate, rhythm, No edema Abdomen: normal bowel sounds, non-tender Skin: normal color, warm/dry Extremities: normal inspection Neuro/Psych: alert, No motor weakness, No sensory deficit ICD10 Worksheet Patient Problems: Problems Problem Status Onset Pneumonia Acute Severe sepsis Acute Shortness of breath Acute
--- NOTE | 2017-03-18 15:00 | GCON ---
[f rep st] CONSULTATION PULMONARY/CRITICAL CARE CONSULTATION. DATE OF CONSULTATION: 03/17/2017 REASON FOR REFERRAL: Evaluation and management of pneumonia and sepsis. HISTORY: The patient is a 51-year-old homeless male who was admitted with history of shortness of br eath and some left-sided chest pain with a productive cough. He denies any nausea or vomiting, and h as not had any dysuria. He feels some body aches and pains as well as feverish and feels quite tired . PAST MEDICAL HISTORY: None. MEDICATIONS: None. ALLERGIES: None. SOCIAL HISTORY: The patient smokes half a pack cigarettes daily. He reports drinking just a couple alcoholic beverages daily. He denies drug use. He has been homeless since earlier this year. FAMILY HISTORY: Unremarkable. REVIEW OF SYSTEMS: A 10-point review of systems adds nothing to the history of present illness. PHYSICAL EXAMINATION: GENERAL: The patient is awake and alert, in mild respiratory distress with ta chypnea. His blood pressure is 129/82. His heart rate is 144. His respiratory rate is 33, and his oxygen saturations are 96% on 3 L. His temperature is 38.3. HEENT: Normocephalic and atraumatic. No icterus. NECK: No JVD. Trachea is midline. CHEST: He has some wheezes bilaterally and rales i n the left. CARDIAC: Regular tachycardia without murmur. ABDOMEN: Soft and nontender. Bowel soun ds are present. EXTREMITIES: No clubbing, cyanosis, or edema. NEURO: The patient is awake, alert, and intact. He is able to move all extremities with symmetric strength. LABORATORY: Sodium is 137. Potassium is 2.4. Creatinine is 1.4. AST is 102 with a total bilirubin of 2.1. Hemoglobin is 18.9, white blood count of 6.8 with 27% bands. Platelet count is 37. INR is 1.1. Urinalysis shows red blood cells. Venous lactate is 14.7, down from 16.0. IMAGING: A chest x-ray shows a dense left midlung pneumonia. The images were reviewed. ASSESSMENT: 1. Severe sepsis. This is likely due to pneumonia. The patient has been given ceftriaxone and has received 3 L of IV fluids. He remains tachycardic. Blood cultures have been obtained. 2. Sinus tachycardia. This has to started respond a bit to the IV fluids. It is possible the patie nt has atrial flutter with 2:1 run block, but no underlying flutter was unmasked with carotid massage . 3. Severe thrombocytopenia. This is likely due to a combination of alcohol abuse and sepsis. There is no active bleeding. 4. Acute kidney injury. This is likely due to sepsis and hypovolemia. 5. Severe lactic acidosis. This is due to the patient's sepsis, although he also may have impaired lactate clearance if he has hepatic insufficiency. 6. Hypokalemia. RECOMMENDATIONS: The patient will be covered with dual antibiotics. I will add Levaquin and increas e his ceftriaxone dose to 2 g daily. We will continue to give IV fluids to see if this helps with hi s tachycardia. In addition to the standard sepsis protocol, I will also start him on vitamin C, thia mine, and hydrocortisone. His platelets will be monitored. Potassium will be replaced. He will be started on the CIWA protocol if he develops signs/symptoms of withdrawal. /[id number]/MODL
[2017-03-18] MEDS ORDERED: fentaNYL 100 MCG/2 ML INJ IVP ONE (15:30)
[2017-03-18] MEDS ORDERED: LIDOCAINE 2% JELLY 5 ML TUBE TP ONE (16:04)
[2017-03-18] MEDS ORDERED: LIDOCAINE 1% 300 MG/30 ML SDV MISC ONE (16:04)
[2017-03-18] MEDS ORDERED: BENZOCAINE UNIT DOSE SPRAY HURRICAINE MM ONE (16:04)
[2017-03-18] MEDS ORDERED: fentaNYL 100 MCG/2 ML INJ IVP PRN (16:13)
[2017-03-18] MEDS ORDERED: fentaNYL/NACL 100 ML IV SCH (16:13)
[2017-03-18] MEDS ORDERED: DEXMEDETOMIDINE HCL 400 MCG in NS 100 ML IV SCH ×2 (16:30→17:00)
[2017-03-18] MEDS ORDERED: IPRATROPIUM/ALBUTEROL 4GM MDI IH SCH (16:45)
[2017-03-18] MEDS ORDERED: MIDAZOLAM 2 MG/2 ML VIAL ONE (16:53)
[2017-03-18] MEDS ORDERED: ALBUTEROL HFA ANES ONLY 200 PUFFS/8.5 GM MDI IH PRN (17:01)
--- NOTE | 2017-03-18 17:05 | GPN ---
[f rep st] PROCEDURE NOTE DATE OF PROCEDURE: 03/18/2017 PROCEDURE: Flexible fiberoptic bronchoscopy, with endotracheal tube intubation. INDICATION FOR PROCEDURE: Hypoxemic respiratory failure. PROCEDURE NOTE: The risks and benefits of the procedure were explained to the patient, who agreed to proceed. The entire procedure was performed in the intensive care unit with the patient under blood pressure, EKG, and oximetry monitoring. It was my assessment that there was no significant risk of airborne infection from the procedure. After an appropriate time-out, 2 cc of 1% lidocaine was aerosolized into the patient's oropharynx fol lowing the placement of a bite block. The bronchoscope was advanced through the bite block into the posterior pharynx, which was normal in appearance. I then advanced the bronchoscope through the voca l cords, and an 8.0 endotracheal tube was slid over the bronchoscope. This was secured in place and the bronchoscope was removed while the patient was bag-ventilated. His oxygen saturations abram from the low 80s (which they had been prior to the procedure) to the low 90s. Then, 2 mg of Versed and 10 0 mcg of fentanyl were given intravenously. The bronchoscope was then reintroduced into the airways, where I encountered a moderate amount of thin yellow-tinged watery secretions. These were primarily from the left side, and were easily suctioned. There was scant secretion on the right. The appropr iate position of the endotracheal tube in the distal trachea was confirmed visually, and the bronchos cope was removed. The endotracheal tube was secured in place, and the patient was placed on a ventil ator, with maintenance of good oxygen saturations. There were no complications apparent at the end o f the procedure. There was no bleeding. No specimens were sent. /[id number]/MODL
[2017-03-18] MEDS ORDERED: IPRATROPIUM HFA INHALER IH SCH (17:15)
[2017-03-18] MEDS ORDERED: MIDAZOLAM 2 MG/2 ML VIAL IVP ONE (18:00)
[2017-03-18 18:12] LABS: BASE EXCESS -10.4 mEq/L (-2.5-2.5); BICARBONATE 17 mEq/L (22-26); MEASURED OXYGEN SATURATION 99 % (92-95); PCO2 49 mmHg (34-38); PO2 164 mmHg (65-75); TCO2 19 mEq/L (23-27)
[2017-03-18 18:14] LABS: ASSIST CONTROL YES; END TIDAL CO2 34; O2 CONCENTRATIION 80 % (0-100); P/F RATIO 205 RATIO; TOTAL RATE 32
[2017-03-18 18:27] LABS: ABSOLUTE NRBC COUNT 0.03 10^3/uL (0-0.01); ADD DIFF? YES; ADD MORPH? NO; ATYPICAL LYMPHOCYTE FLAG 0 (0-99); FRAGMENT RBC FLAG 0 (0-99); HEMATOCRIT 45.1 % (40.0-51.0); HEMOGLOBIN 15.2 g/dL (13.7-17.5); LIPEMIA HEMOLYSIS FLAG 80 (0-99); MEAN CELL HEMOGLOBIN 36.3 pg (27.9-34.1); MEAN CELL HEMOGLOBIN CONCENTR. 33.7 g/dL (32.4-36.7); MEAN CELL VOLUME 107.6 fL (81.5-99.8); MEAN PLATELET VOLUME 11.1 fL (8.7-11.7); PLATELET CLUMPS FLAG 0 (0-99); RED BLOOD CELL COUNT 4.19 10^6/uL (4.40-6.38); RED CELL DISTRIBUTION WIDTH 16.1 % (11.5-15.2)
[2017-03-18 18:33] LABS: ADD SCAN? NO; LEFT SHIFT FLG 300 (0-99); PLATELET COUNT 42 10^3/uL (150-400)
[2017-03-18] MEDS: NOREPINEPHRINE BITARTRATE 4 MG in D5W 500 ML IV SCH (19:17)
[2017-03-18 19:29] LABS: MACROCYTES 1+; PLATELET ESTIMATE DECREASED (ADEQ); TOXIC VACUOLIZATION PRESENT
[2017-03-18] MEDS: IPRATROPIUM HFA INHALER IH SCH ×2 (20:28→23:55)
[2017-03-18] MEDS: ALBUTEROL 200 PUFFS/18 GM MDI IH PRN ×2 (20:28→23:55)
[2017-03-18] MEDS ORDERED: ERTAPENEM 1 GM in NS 100 ML IV SCH (21:00)
[2017-03-18] MEDS ORDERED: HYDROGEN PEROXIDE 236 ML BOTTLE TP ONE (21:05)
[2017-03-18 21:06] LABS: POTASSIUM 4.7 mEq/L (3.5-5.2)
[2017-03-18] MEDS: CHLORHEXIDINE GLUCONATE 15 ML UDL PO SCH (21:07)
[2017-03-18] MEDS: FAMOTIDINE 20 MG/NACL 50 ML IV SCH (21:07)
[2017-03-18] MEDS: ALTEPLASE 2 MG VIAL IVP PRN (22:24)
[2017-03-19] MEDS: NS IV SCH ×4 (00:13→17:13)
[2017-03-19] MEDS: ASCORBIC ACID IV SCH ×4 (00:13→17:13)
[2017-03-19] MEDS: THIAMINE HCL 100 MG in NS 100 ML IV SCH ×4 (00:13→17:13)
[2017-03-19] MEDS: HYDROCORTISONE 100 MG/2 ML VIAL IV SCH ×4 (00:13→17:12)
[2017-03-19 00:53] LABS: POTASSIUM 4.1 mEq/L (3.5-5.2)
[2017-03-19 00:57] LABS: ABSOLUTE NRBC COUNT 0.02 10^3/uL (0-0.01); ADD DIFF? YES; ADD MORPH? NO; ATYPICAL LYMPHOCYTE FLAG 0 (0-99); FRAGMENT RBC FLAG 0 (0-99); HEMATOCRIT 42.3 % (40.0-51.0); HEMOGLOBIN 14.3 g/dL (13.7-17.5); LIPEMIA HEMOLYSIS FLAG 90 (0-99); MEAN CELL HEMOGLOBIN 36.2 pg (27.9-34.1); MEAN CELL HEMOGLOBIN CONCENTR. 33.8 g/dL (32.4-36.7); MEAN CELL VOLUME 107.1 fL (81.5-99.8); MEAN PLATELET VOLUME 12.1 fL (8.7-11.7); NRBC-AUTO% 0.7 % (0.0-0.2); PLATELET CLUMPS FLAG 10 (0-99); RED BLOOD CELL COUNT 3.95 10^6/uL (4.40-6.38); RED CELL DISTRIBUTION WIDTH 16.2 % (11.5-15.2)
[2017-03-19 00:59] LABS: ADD SCAN? NO; LEFT SHIFT FLG 300 (0-99); PLATELET COUNT 32 10^3/uL (150-400)
[2017-03-19] MEDS: NOREPINEPHRINE BITARTRATE 4 MG in D5W 500 ML IV SCH (01:00)
[2017-03-19 02:39] LABS: PLATELET ESTIMATE DECREASED (ADEQ); TOXIC GRANULATION PRESENT; TOXIC VACUOLIZATION PRESENT
[2017-03-19] MEDS: VASOPRESSIN/DEXTROSE 250 ML IV SCH ×2 (02:43→11:50)
[2017-03-19] MEDS: fentaNYL/NACL 100 ML IV SCH ×2 (04:36→17:12)
[2017-03-19] MEDS: PROPOFOL/EMULSION 100 ML IV SCH (04:37)
[2017-03-19] MEDS: IPRATROPIUM HFA INHALER IH SCH ×6 (04:37→23:25)
[2017-03-19 04:46] LABS: PLATELET COUNT 33 10^3/uL (150-400)
[2017-03-19 04:51] LABS: INR 1.64 (0.83-1.16); PROTIME(PATIENT) 19.5 SEC (12.0-15.0)
[2017-03-19 04:53] LABS: APTT 37.8 SEC (23.0-38.0)
[2017-03-19 04:54] LABS: FIBRINOGEN 417 mg/dL (214-456)
[2017-03-19 05:05] LABS: CALCULATED OXYGEN SATURATION 99 % (92-95); O2 CONCENTRATIION 60 % (0-100)
[2017-03-19] MEDS: D5W 1/2 NS 1,000 ML IV SCH (05:56)
[2017-03-19] MEDS ORDERED: NOREPINEPHRINE BITARTRATE 16 MG in D5W 250 ML IV SCH (06:00)
[2017-03-19] MEDS: MEROPENEM 1 GM in NS 100 ML IV SCH ×2 (06:07→15:15)
[2017-03-19 07:58] LABS: ALANINE AMINOTRANSFERASE 35 IU/L (21-72); ALBUMIN 1.7 g/dL (3.5-5.0); ALKALINE PHOSPHATASE 26 IU/L (38-126); ANION GAP 7 mEq/L (8-16); ASPARTATE AMINOTRANSFERASE 49 IU/L (17-59); BILIRUBIN,TOTAL 2.1 mg/dL (0.1-1.4); BILIRUBIN-CONJUGATED 1.2 mg/dL (0.0-0.5); BILIRUBIN-UNCONJUGATED 0.9 mg/dL (0.0-1.1); CALCIUM 7.3 mg/dL (8.5-10.4); CARBON DIOXIDE 20 mEq/l (22-31); CHLORIDE 109 mEq/L (97-110); CREATININE 0.8 mg/dL (0.7-1.3); GLOMERULAR FILTRATION RATE > 60; GLUCOSE 153 mg/dL (70-100); MAGNESIUM 1.8 mg/dL (1.6-2.3); POTASSIUM 3.8 mEq/L (3.5-5.2); SODIUM 136 mEq/L (134-144); TOTAL PROTEIN 3.9 g/dL (6.3-8.2)
[2017-03-19] MEDS ORDERED: POTASSIUM Cl (KCl) 50 ML IV ONE (08:19)
[2017-03-19] MEDS ORDERED: MAGNESIUM SULF 1 GM/DEXTROSE 100 ML IV ONE (08:19)
[2017-03-19] MEDS: chlordiazePOXIDE 25 MG CAP PO SCH (08:22)
--- NOTE | 2017-03-19 08:25 | PCMIDPN ---
Assessment/Plan: # Sepsis secondary to Acinetobacter bacteremia, presumed secondary to left side pneumonia. Yesterday was intubated, today FiO2 of 60% and remains on to pressors but bandemia and severe thrombocytopenia slowly improving. chest x- ray reviewed by me and Infiltrate on the left remains stable today. -- continue dual therapy with meropenem and levofloxacin in hopes of covering Acinetobacter. Once susceptibilities are available (Tuesday03/20/2017) will narrow down to 1 agent -- continue to monitor cultures, sputum was collected yesterday in an attempt to prove Microbiologically Acinetobacter pneumonia. medications Meropenem 1 g IV Q 8, # 1 Levofloxacin 750 IV daily, # 3 microbiology 03/18 sputum culture pending 03/17 Blood cultures / Acinetobacter GI panel PCR and respiratory panel PCR negative Subjective: patient was intubated following my exam Patient with soft BM, nursing describes as green and fatty appearing. Objective: Vital Signs Temp Pulse Resp BP Pulse Ox 37.9 C 97 28 H 110/72 100 03/19/17 08:00 03/19/17 08:00 03/19/17 08:00 03/19/17 08:00 03/19/17 08:00 Microbiology 03/18/17 20:20 - Final Sputum, Induced/Suctioned 03/17/17 23:00 Gastrointestinal Tract Panel (PCR) - Final Stool No Organism Detected Laboratory Results 03/19/17 04:30 03/19/17 07:25 03/18/17 03/19/17 03/20/17 05:59 05:59 05:59 Intake Total 7702.5 9377.7 Output Total 1775 950 Balance 5927.5 8427.7 - Physical Exam General Appearance: alert EENT: ET Tube, NG Tube, poor dentition, No scleral icterus Neck: supple Cardiac/Chest: tachycardia Extremities: No pedal edema Abdomen: normal bowel sounds, non-tender, soft, No distended Male Genitalia: madrigal ( Urine is [place], likely attributed to elevated bilirubin), No scrotal edema Skin: No rash, No embolic lesions, No signs of IVDA Neuro/Psych: alert - Line/s RUE PICC Lines: No drainage, No erythema - Time Spent With Patient Time Spent with Patient: greater than 25 minutes Time Spent with Patient: Greater than 25 minutes spent on this patients care, greater than 50% of time spent counseling, educating, and coordinating care regarding the above mentioned plan. ICD10 Worksheet Patient Problems: Problems Problem Status Onset Pneumonia Acute Severe sepsis Acute Shortness of breath Acute
[2017-03-19] MEDS ORDERED: cefTRIAXone 2 GM in D5W 50 ML IV SCH (09:00)
[2017-03-19] MEDS ORDERED: ERTAPENEM 1 GM in NS 100 ML IV SCH (09:00)
[2017-03-19] MEDS: NICOTINE 14 MG/24 HR PATCH TD SCH (09:07)
[2017-03-19] MEDS: CHLORHEXIDINE GLUCONATE 15 ML UDL PO SCH ×2 (09:07→21:53)
[2017-03-19] MEDS: FAMOTIDINE 20 MG/NACL 50 ML IV SCH ×2 (09:07→21:53)
[2017-03-19] MEDS: ALBUTEROL 200 PUFFS/18 GM MDI IH PRN ×5 (09:30→23:25)
--- NOTE | 2017-03-19 09:31 | PDINTPN ---
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 Now on NE at high dose+ DECAL MAKER due to hypotension despite>12 liters IVF. Lactate improved but still not normalized. Urine output low but adequate. Intubated due to respiratory failure * Acinetobacter Pneumonia: On Meropenem, Levo. Sensitivities pending. * Hypercarbic and hypoxemic respiratory failure: Due to pneumonia and fluid resuscitation, worsened yesterday, intubated and was initially acidemic after intubation, now corrected. * Thrombocytopenia: Severe, improved after transfusion yesterday, but down a bit again today. +FOB, but no gross active bleeding apparent, but no other signs of active bleeding. * Hypoglycemia: Resolved on D5. * ? EtOH: No signs of significant withdrawal, got some benzo's overnight. * Hypokalemia: Resolved with replacement * Sinus tachycardia: Improved with treatment of sepsis, but still quite tachycardic. * Nutrition: None since admission Plan: Continue mechanical ventilation, trial of CPAP today. Try to wean down pressors as tolerated. Will change D5 1/2 NS to D5 NS. Give bolus of albumin. Continue antibiotics per ID. Follow Platelets. Place NG tube and start tube feeds. 35 minutes CC time managing ongoing pressors and septic shock, responding to labs and hypotension/tachycardia. 03/19/17 09:36 Subjective: Intubated, sedated, following simple commands. Objective: Vital Signs Temp Pulse Resp BP Pulse Ox 37.9 C 107 H 26 H 105/69 99 03/19/17 09:00 03/19/17 09:00 03/19/17 09:00 03/19/17 09:00 03/19/17 09:00 Microbiology 03/18/17 20:20 - Final Sputum, Induced/Suctioned 03/17/17 23:00 Gastrointestinal Tract Panel (PCR) - Final Stool No Organism Detected Laboratory Results 03/19/17 04:30 03/19/17 07:25 03/18/17 03/19/17 03/20/17 05:59 05:59 05:59 Intake Total 7702.5 9377.7 Output Total 1775 950 Balance 5927.5 8427.7 PT 19.5 SEC (12.0-15.0) H 03/19/17 04:30 INR 1.64 (0.83-1.16) H 03/19/17 04:30 CXR: Stable left dense consolidation and mild right midlung infiltrate. Images reviewed Laboratory Tests 03/19/17 03/19/17 03/19/17 04:30 04:51 07:35 INR 1.64 H POC pH 7.34 L POC pCO2 31 L POC pO2 149 H POC HCO3 17 L POC Total CO2 18 L ABG Lactic Acid 4.6 H Physical Exam - Physical Exam General Appearance: alert, no apparent distress EENT: normal ENT inspection Neck: normal inspection Respiratory: crackles (left), wheezing Cardiac/Chest: regular rate, rhythm, No edema Abdomen: normal bowel sounds, non-tender Skin: normal color, warm/dry Extremities: normal inspection Neuro/Psych: normal mood/affect, No motor weakness ICD10 Worksheet Patient Problems: Problems Problem Status Onset Pneumonia Acute Severe sepsis Acute Shortness of breath Acute
[2017-03-19] MEDS ORDERED: ALBUMIN 5% 500 ML IV ONE (09:40)
[2017-03-19] MEDS ORDERED: D5W NS 1,000 ML IV SCH (09:45)
--- NOTE | 2017-03-19 10:02 | HOSPPROG ---
Hospitalist Progress Note Assessment/Plan: # septic shock - on levophed/vaso; source is pna and bacteremia - cont pressors, fluids, steroids, vit C # bacteremia d/t acinetobacter - merrem/levaquin per ID; narrow when sensitivities available (tomorrow) # pneumonia - on merrem/levaquin # acuter respiratory failure d/t pneumonia - intubated 03/18; FiO2 better today # elevated troponin - suspect d/t demand - echo ok # DIC - d/t above # marked hypoglycemia - better, cont D5 # etOH abuse - suspect he will have significant w/d - currently on propofol; monitor when extubated # elevated LFTs -d/t sepsis vs underlying steatosis # acidosis - resolving with aggressive IVF # electrolyte abnormalities - replete # ppx - no lovenox with low plts; pepcid 35 minutes of floor/bedside CC time managing septic shock requiring 2 pressors Subjective: intubated yesterday afternoon; no overnight events Objective: Vital Signs Temp Pulse Resp BP Pulse Ox 37.9 C 107 H 26 H 105/69 99 03/19/17 09:00 03/19/17 09:00 03/19/17 09:00 03/19/17 09:00 03/19/17 09:00 Microbiology 03/18/17 20:20 - Final Sputum, Induced/Suctioned 03/17/17 23:00 Gastrointestinal Tract Panel (PCR) - Final Stool No Organism Detected Laboratory Results 03/19/17 04:30 03/19/17 07:25 03/18/17 03/19/17 03/20/17 05:59 05:59 05:59 Intake Total 7702.5 9377.7 Output Total 1775 950 Balance 5927.5 8427.7 PT 19.5 SEC (12.0-15.0) H 03/19/17 04:30 INR 1.64 (0.83-1.16) H 03/19/17 04:30 - Physical Exam Constitutional: no apparent distress, other (awakes to voice) Cardiovascular: regular rate and rhythym, no murmur, rub, or gallop Respiratory: no respiratory distress, inspiratory crackles, other (intubated) Gastrointestinal: normoactive bowel sounds, soft, non-tender abdomen, no palpable masses ICD10 Worksheet Patient Problems: Problems Problem Status Onset Shortness of breath Acute Pneumonia Acute Severe sepsis Acute
[2017-03-19] MEDS: D10W 250 ML PRN HYPOGLYCEMIA IV ×2 (12:32→22:41)
[2017-03-19 13:37] LABS: POTASSIUM 3.6 mEq/L (3.5-5.2)
[2017-03-19] MEDS: POTASSIUM Cl (KCl) 50 ML IV SCH (14:54)
[2017-03-19] MEDS ORDERED: ACETAMINOPHEN 325 MG TAB TUBE PRN (15:00)
[2017-03-19] MEDS ORDERED: ONDANSETRON DISINTEGRATING 4 MG TAB TUBE PRN (15:00)
--- NOTE | 2017-03-19 16:17 | ASMTCMCOM ---
CM Note CM Note Notes: Pt. is a 51-year-old man admitted with sudden shortness of breath, PNA, hypokalemia, Aflutter, and septic shock. Pt. intubated. Pt. is homeless per chart. SILVIA/TED to follow for d/c POC. Date Signed: 03/19/2017 04:17 PM Electronically Signed By:Arianna Lopez LCSW
[2017-03-19] MEDS: chlordiazePOXIDE 25 MG CAP TUBE SCH ×2 (17:12→21:53)
[2017-03-19 18:13] LABS: POTASSIUM 4.2 mEq/L (3.5-5.2)
[2017-03-19 23:21] LABS: ANION GAP 8 mEq/L (8-16); CALCIUM 7.8 mg/dL (8.5-10.4); CARBON DIOXIDE 20 mEq/l (22-31); CHLORIDE 111 mEq/L (97-110); CREATININE 0.6 mg/dL (0.7-1.3); GLOMERULAR FILTRATION RATE > 60; GLUCOSE 179 mg/dL (70-100); POTASSIUM 3.7 mEq/L (3.5-5.2); SODIUM 139 mEq/L (134-144)
[2017-03-20] MEDS: MEROPENEM 1 GM in NS 100 ML IV SCH ×4 (00:04→22:12)
[2017-03-20] MEDS: HYDROCORTISONE 100 MG/2 ML VIAL IV SCH ×5 (00:04→23:15)
[2017-03-20] MEDS: NS IV SCH ×4 (00:05→18:47)
[2017-03-20] MEDS: THIAMINE HCL 100 MG in NS 100 ML IV SCH ×5 (00:05→23:30)
[2017-03-20] MEDS: ASCORBIC ACID IV SCH ×4 (00:05→18:47)
[2017-03-20 00:56] LABS: ANION GAP 7 mEq/L (8-16); CARBON DIOXIDE 21 mEq/l (22-31); CHLORIDE 110 mEq/L (97-110); CREATININE 0.7 mg/dL (0.7-1.3); GLOMERULAR FILTRATION RATE > 60; GLUCOSE 212 mg/dL (70-100); POTASSIUM 3.6 mEq/L (3.5-5.2); SODIUM 138 mEq/L (134-144)
[2017-03-20] MEDS: CHLORHEXIDINE GLUCONATE 15 ML UDL PO SCH ×2 (01:37→19:52)
[2017-03-20] MEDS: fentaNYL/NACL 100 ML IV SCH ×2 (03:07→15:54)
[2017-03-20] MEDS: POTASSIUM Cl (KCl) 50 ML IV SCH ×6 (03:07→23:12)
[2017-03-20] MEDS: ALBUTEROL 200 PUFFS/18 GM MDI IH PRN ×3 (04:23→23:44)
[2017-03-20] MEDS: IPRATROPIUM HFA INHALER IH SCH ×6 (04:24→23:45)
[2017-03-20] MEDS: VASOPRESSIN/DEXTROSE 250 ML IV SCH (04:48)
[2017-03-20 06:18] LABS: BASE EXCESS -1.9 mEq/L (-2.5-2.5); BICARBONATE 21 mEq/L (22-26); MEASURED OXYGEN SATURATION 96 % (92-95); PCO2 34 mmHg (34-38); PO2 79 mmHg (65-75); TCO2 22 mEq/L (23-27)
[2017-03-20 06:19] LABS: CPAP YES; PATIENT RATE 18; PRESSURE SUPPORT 10
[2017-03-20 06:33] LABS: ABSOLUTE NRBC COUNT 0.03 10^3/uL (0-0.01); ADD DIFF? YES; ADD MORPH? NO; ATYPICAL LYMPHOCYTE FLAG 0 (0-99); FRAGMENT RBC FLAG 0 (0-99); HEMOGLOBIN 12.1 g/dL (13.7-17.5); LIPEMIA HEMOLYSIS FLAG 90 (0-99); MEAN CELL HEMOGLOBIN 35.8 pg (27.9-34.1); MEAN CELL HEMOGLOBIN CONCENTR. 34.6 g/dL (32.4-36.7); MEAN CELL VOLUME 103.6 fL (81.5-99.8); MEAN PLATELET VOLUME 13.4 fL (8.7-11.7); NRBC-AUTO% 0.6 % (0.0-0.2); PLATELET CLUMPS FLAG 0 (0-99); RED BLOOD CELL COUNT 3.38 10^6/uL (4.40-6.38); RED CELL DISTRIBUTION WIDTH 16.1 % (11.5-15.2)
[2017-03-20 06:42] LABS: INR 1.15 (0.83-1.16); PROTIME(PATIENT) 14.7 SEC (12.0-15.0)
[2017-03-20 07:00] LABS: LEFT SHIFT FLG 300 (0-99)
[2017-03-20 07:03] LABS: ADD SCAN? NO
[2017-03-20 07:04] LABS: PLATELET COUNT 14 10^3/uL (150-400)
[2017-03-20 07:37] LABS: ANION GAP 7 mEq/L (8-16); CALCIUM 7.8 mg/dL (8.5-10.4); CARBON DIOXIDE 22 mEq/l (22-31); CHLORIDE 112 mEq/L (97-110); CREATININE 0.6 mg/dL (0.7-1.3); GLOMERULAR FILTRATION RATE > 60; GLUCOSE 129 mg/dL (70-100); MAGNESIUM 2.3 mg/dL (1.6-2.3); POTASSIUM 3.9 mEq/L (3.5-5.2); SODIUM 141 mEq/L (134-144)
[2017-03-20 07:59] LABS: MACROCYTES 1+; PLATELET ESTIMATE DECREASED (ADEQ); TOXIC GRANULATION PRESENT; TOXIC VACUOLIZATION PRESENT
[2017-03-20] MEDS ORDERED: POTASSIUM Cl (KCl) 50 ML IV ONE (08:56)
[2017-03-20] MEDS: FAMOTIDINE 20 MG/NACL 50 ML IV SCH ×2 (08:57→20:31)
[2017-03-20] MEDS: NICOTINE 14 MG/24 HR PATCH TD SCH (08:57)
[2017-03-20] MEDS: chlordiazePOXIDE 25 MG CAP TUBE SCH ×3 (08:57→21:34)
[2017-03-20] MEDS: THIAMINE HCL 100 MG TAB TUBE SCH (08:57)
--- NOTE | 2017-03-20 09:30 | PDINTPN ---
Machine Turner Progress Note Assessment/Plan: Assessment: * Septic Shock: Due to acinetobacter pneumonia. Able to wean down NE, still on CLIENT DIRECTOR due to hypotension despite I>O 17 liters. Lactate continues to improve but still not normalized. Urine output improved. * Acinetobacter Pneumonia: On Meropenem, Levo. Pansensitive * Hypercarbic and hypoxemic respiratory failure: Due to pneumonia and fluid resuscitation, improved today, tolerating CPAP 40% oxygen. * Thrombocytopenia: Severe, improved after transfusion yesterday, but down again today. +FOB, but no gross active bleeding apparent, but no other signs of active bleeding. * Hypoglycemia: Recurred, responded to D10. * ? EtOH: No signs of significant withdrawal, got some benzos overnight. * Sinus tachycardia: Improved with treatment of sepsis, but still tachycardic. * Nutrition: Started tube feeds, but high residuals, likely due to narcotics, sepsis, and bowel edema from fluid resuscitation. Plan: Continue mechanical ventilation, trials of CPAP today. Would not extubate yet given fairly high work of breathing. Try to wean down pressors as tolerated, then diuresis. Give bolus of albumin. Continue antibiotics per ID, likely change to single agent. Repeat Blood Cxs. Follow Platelets. Continue tube feeds as tolerated, hopefully residuals were will improve with diuresis. 40 minutes CC time managing ongoing pressors and septic shock, diuresis, hypoglycemia, responding to labs and tachycardia. 03/20/17 09:34 Subjective: Intubated, sedated. Objective: Vital Signs Temp Pulse Resp BP Pulse Ox 37.5 C 91 20 88/62 L 100 03/20/17 07:00 03/20/17 08:07 03/20/17 08:07 03/20/17 07:00 03/20/17 08:07 Microbiology 03/17/17 16:45 Urine Culture - Final Urine,Clean Catch 03/18/17 20:20 - Final Sputum, Induced/Suctioned Laboratory Results 03/20/17 06:15 03/20/17 06:15 03/19/17 03/20/17 03/21/17 05:59 05:59 05:59 Intake Total 9377.7 5024.1 Output Total 950 2250 Balance 8427.7 2774.1 PT 14.7 SEC (12.0-15.0) 03/20/17 06:15 INR 1.15 (0.83-1.16) 03/20/17 06:15 Laboratory Tests 03/20/17 03/20/17 05:20 05:20 pO2 79 H Total CO2 22 L ABG pH 7.42 ABG HCO3 21 L ABG Lactic Acid 3.0 H D Total O2 Concentration 40.0 PEEP 5 Pressure Support 10 CPAP YES Abd X-ray: NGT ciled in stomach. Persistent pulmonary infiltrates. Images reviewed. Physical Exam - Physical Exam General Appearance: alert, no apparent distress EENT: normal ENT inspection Neck: normal inspection Respiratory: rales, rhonchi, wheezing Cardiac/Chest: regular rate, rhythm, edema (trace) Abdomen: normal bowel sounds, non-tender, soft Skin: normal color, warm/dry Extremities: normal inspection Neuro/Psych: alert, normal mood/affect, oriented x 3 ICD10 Worksheet Patient Problems: Problems Problem Status Onset Pneumonia Acute Severe sepsis Acute Shortness of breath Acute
--- NOTE | 2017-03-20 09:47 | PCMIDPN ---
Assessment/Plan: # Sepsis secondary to Acinetobacter bacteremia, presumed secondary to left side pneumonia. Decreased pressor requirement, FiO2 of 40%. Reviewed KUB which included lung windows, L sided infiltrate appears stable --[place]-S Acinetobacter. Carbapenem, unasyn consider first line therapy. Will continue meropenem and dc levofloxacin --due to severe nature of disease, will repeat blood cultures today # Fever, isolated at this point. If continues will evaluate further based on clinical findings. Other measures show clinical improvement at this point # Elevated bilirubin/bilirubin tinged resp secretions and urine, US show hepatomegaly, INR prolonged, low platelets. Could have some underlying liver dysfunction but also could be due to severe sepsis --check LFTs today medications Meropenem 1 g IV Q 8, # 2 DC'd today Levofloxacin 750 IV daily, # 3 microbiology 03/18 sputum culture Mixed jt 03/17 Blood cultures 07/05 Acinetobacter GI panel PCR and respiratory panel PCR negative Subjective: decreased pressors overnight, decreased FiO2 Objective: Vital Signs Temp Pulse Resp BP Pulse Ox 37.5 C 91 20 88/62 L 100 03/20/17 07:00 03/20/17 08:07 03/20/17 08:07 03/20/17 07:00 03/20/17 08:07 Microbiology 03/17/17 16:45 Urine Culture - Final Urine,Clean Catch 03/18/17 20:20 - Final Sputum, Induced/Suctioned Laboratory Results 03/20/17 06:15 03/20/17 06:15 03/19/17 03/20/17 03/21/17 05:59 05:59 05:59 Intake Total 9377.7 5024.1 Output Total 950 2250 Balance 8427.7 2774.1 T MAX 39 at 4AM General Appearance: alert, diaphoretic on CPAP EENT: ET Tube, NG Tube, poor dentition, mild scleral icterus Neck: supple Cardiac/Chest: tachycardia Extremities: No pedal edema Abdomen: normal bowel sounds, non-tender, soft, No distended Male Genitalia: madrigal- Urine is [place], likely attributed to elevated bilirubin, No scrotal edema Skin: No rash, No embolic lesions, No signs of IVDA Neuro/Psych: alert RUE PICC: No drainage, No erythema ICD10 Worksheet Patient Problems: Problems Problem Status Onset Pneumonia Acute Severe sepsis Acute Shortness of breath Acute
--- NOTE | 2017-03-20 09:51 | HOSPPROG ---
Hospitalist Progress Note Assessment/Plan: # septic shock - on levophed/vaso; source is pna and bacteremia - cont pressors, fluids, steroids, vit C # bacteremia d/t acinetobacter - merrem/levaquin per ID; ID to narrow abx today # pneumonia - on merrem/levaquin - narrow as above # acuter respiratory failure d/t pneumonia - intubated 03/18; FiO2 better today - not likely to be extubated today # nutrition - TF with significant residuals, possible steatorrhea - check lipase # elevated troponin - suspect d/t demand - echo ok # DIC - d/t above - very low platelets # marked hypoglycemia - better, cont D5 # etOH abuse - - w/d currently controlled on propofol; monitor when extubated # elevated LFTs - d/t sepsis vs underlying steatosis # acidosis - resolving with aggressive IVF # electrolyte abnormalities - replete # ppx - no lovenox with low plts; pepcid 35 minutes of floor/bedside CC time managing septic shock requiring 2 pressors Subjective: no diarrhea today; off CPAP Objective: Vital Signs Temp Pulse Resp BP Pulse Ox 37.5 C 91 20 88/62 L 100 03/20/17 07:00 03/20/17 08:07 03/20/17 08:07 03/20/17 07:00 03/20/17 08:07 Microbiology 03/17/17 16:45 Urine Culture - Final Urine,Clean Catch 03/18/17 20:20 - Final Sputum, Induced/Suctioned Laboratory Results 03/20/17 06:15 03/20/17 06:15 03/19/17 03/20/17 03/21/17 05:59 05:59 05:59 Intake Total 9377.7 5024.1 Output Total 950 2250 Balance 8427.7 2774.1 PT 14.7 SEC (12.0-15.0) 03/20/17 06:15 INR 1.15 (0.83-1.16) 03/20/17 06:15 - Physical Exam Constitutional: other (intubated) Ears, Nose, Mouth, Throat: other (intubated) Cardiovascular: regular rate and rhythym, no murmur, rub, or gallop Respiratory: other (diffuse rhonchi), No reduced air movement, No expiratory wheeze, No inspiratory crackles Gastrointestinal: normoactive bowel sounds, soft, non-tender abdomen, no palpable masses ICD10 Worksheet Patient Problems: Problems Problem Status Onset Shortness of breath Acute Pneumonia Acute Severe sepsis Acute
[2017-03-20] MEDS ORDERED: PROTOCOL K PHOSPHATE 1 DOSE IV PRN (10:42)
[2017-03-20 10:51] LABS: BILIRUBIN,TOTAL 5.7 mg/dL (0.1-1.4); BILIRUBIN-CONJUGATED 4.6 mg/dL (0.0-0.5); BILIRUBIN-UNCONJUGATED 1.1 mg/dL (0.0-1.1); TOTAL PROTEIN 4.2 g/dL (6.3-8.2)
[2017-03-20] MEDS ORDERED: K PHOS 20 MMOL in D5W 250 ML IV ONE (12:00)
[2017-03-20] MEDS ORDERED: FUROSEMIDE 40 MG/4 ML VIAL IVP ONE (13:56)
[2017-03-20] MEDS ORDERED: ALBUMIN 25% 100 ML IV ONE (13:57)
--- NOTE | 2017-03-20 14:14 | WOCRNPDOC ---
[facility] Advanced Assessment Note - Skin Integrity Problem, Advanced Assess Generalized Back Dressing Type: Open to Air Exudate Amount: None Exudate Characteristic(s): None Minesh Wound Tissue: Blanching, Erythema Minesh Wound Swelling: None Wound Bed Color: Brown, Red Wound Bed Constitution: Smooth Tissue, Scab Site Odor: None Site Measurement - Head-to-Toe Length X Width X Depth (cm): see note Skin Integrity Problem Comment: Pinpoint, scattered scabs noted throughout patient's back, some with intact scabs and others w/ small, circular wounds. Unsure of the etiology of these wounds, but their appearance is indicative of insect bites. There is no purulence, swelling, or minesh-wound erythema noted. Advise ongoing monitoring, but wound care does not need to be involved unless wounds worsen. preparation supervisor Jo present and assisting. Right Illiac Crest Dressing Type: Open to Air Exudate Amount: None Exudate Characteristic(s): None Minesh Wound Tissue: Intact Wound Bed Color: Purple Site Measurement - Head-to-Toe Length X Width X Depth (cm): [id number] Skin Integrity Problem Comment: Large area of ecchymosis over patient's R iliac crest, extending onto his lower R flank. Nursing wanted assessment to r/o pressure injury. While a portion of this bruising is located over a bony prominence, half of the injury is over soft tissue w/ no induration palpated. Nursing should continue to monitor ongoing for any changes indicating deep tissue injury, but for now wound care does not need to follow ongoing.
[2017-03-20] MEDS: ALTEPLASE 2 MG VIAL IVP PRN ×2 (15:30→16:00)
[2017-03-20] MEDS: INSULIN REGULAR HUMAN 100 UNIT/ML SC SCH ×3 (15:53→22:13)
[2017-03-20] MEDS ORDERED: ALTEPLASE 2 MG VIAL IVP PRN (17:39)
[2017-03-20 18:53] LABS: POTASSIUM 3.3 mEq/L (3.5-5.2)
[2017-03-21] MEDS: NS IV SCH ×3 (00:01→12:31)
[2017-03-21] MEDS: ASCORBIC ACID IV SCH ×3 (00:01→12:31)
[2017-03-21 00:45] LABS: POTASSIUM 3.8 mEq/L (3.5-5.2)
[2017-03-21] MEDS ORDERED: POTASSIUM Cl (KCl) 50 ML IV ONE ×2 (01:37→10:28)
[2017-03-21] MEDS: INSULIN REGULAR HUMAN 100 UNIT/ML SC SCH ×6 (02:05→21:50)
[2017-03-21] MEDS: ALBUTEROL 200 PUFFS/18 GM MDI IH PRN ×2 (04:15→08:04)
[2017-03-21] MEDS: IPRATROPIUM HFA INHALER IH SCH ×3 (04:16→12:05)
[2017-03-21] MEDS: PROPOFOL/EMULSION 100 ML IV SCH (04:35)
[2017-03-21] MEDS: HYDROCORTISONE 100 MG/2 ML VIAL IV SCH ×4 (04:36→23:11)
[2017-03-21] MEDS: THIAMINE HCL 100 MG in NS 100 ML IV SCH ×2 (04:36→08:53)
[2017-03-21] MEDS: fentaNYL/NACL 100 ML IV SCH (04:42)
[2017-03-21] MEDS: MEROPENEM 1 GM in NS 100 ML IV SCH ×3 (05:22→21:46)
[2017-03-21 05:33] LABS: % IMMATURE GRANULYOCYTES 1.1 % (0.0-1.1); ABSOLUTE IMMATURE GRANULOCYTES 0.05 10^3/uL (0.00-0.10); ABSOLUTE NRBC COUNT 0.02 10^3/uL (0-0.01); ADD DIFF? NO; ADD MORPH? NO; ADD SCAN? YES; ATYPICAL LYMPHOCYTE FLAG 0 (0-99); FRAGMENT RBC FLAG 0 (0-99); HEMATOCRIT 27.2 % (40.0-51.0); HEMOGLOBIN 9.4 g/dL (13.7-17.5); LIPEMIA HEMOLYSIS FLAG 90 (0-99); MEAN CELL HEMOGLOBIN 36.4 pg (27.9-34.1); MEAN CELL HEMOGLOBIN CONCENTR. 34.6 g/dL (32.4-36.7); MEAN CELL VOLUME 105.4 fL (81.5-99.8); NRBC-AUTO% 0.4 % (0.0-0.2); PLATELET CLUMPS FLAG 20 (0-99); RED BLOOD CELL COUNT 2.58 10^6/uL (4.40-6.38); RED CELL DISTRIBUTION WIDTH 16.7 % (11.5-15.2)
[2017-03-21 05:38] LABS: INR 1.34 (0.83-1.16); PROTIME(PATIENT) 16.6 SEC (12.0-15.0)
[2017-03-21 05:39] LABS: APTT 33.9 SEC (23.0-38.0)
[2017-03-21 05:43] LABS: LEFT SHIFT FLG 300 (0-99)
[2017-03-21 05:46] LABS: PLATELET COUNT 8 10^3/uL (150-400)
[2017-03-21 05:49] LABS: FIBRINOGEN 331 mg/dL (214-456)
[2017-03-21 05:53] LABS: PLATELET COUNT 8 10^3/uL (150-400)
[2017-03-21 06:19] LABS: HEMATOCRIT 32.8 % (40.0-51.0); HEMOGLOBIN 11.4 g/dL (13.7-17.5); LIPEMIA HEMOLYSIS FLAG 90 (0-99); MEAN CELL HEMOGLOBIN 35.8 pg (27.9-34.1); MEAN CELL HEMOGLOBIN CONCENTR. 34.8 g/dL (32.4-36.7); MEAN CELL VOLUME 103.1 fL (81.5-99.8); PLATELET CLUMPS FLAG 0 (0-99); RED BLOOD CELL COUNT 3.18 10^6/uL (4.40-6.38); RED CELL DISTRIBUTION WIDTH 16.9 % (11.5-15.2)
[2017-03-21 06:23] LABS: PLATELET COUNT 12 10^3/uL (150-400)
[2017-03-21 06:24] LABS: PLATELET COUNT 12 10^3/uL (150-400)
[2017-03-21 06:26] LABS: INR 1.11 (0.83-1.16); PROTIME(PATIENT) 14.2 SEC (12.0-15.0)
[2017-03-21 06:27] LABS: APTT 28.8 SEC (23.0-38.0); FIBRINOGEN 423 mg/dL (214-456)
[2017-03-21 06:38] LABS: ALANINE AMINOTRANSFERASE 129 IU/L (21-72); ALKALINE PHOSPHATASE 68 IU/L (38-126); ANION GAP 5 mEq/L (8-16); ASPARTATE AMINOTRANSFERASE 510 IU/L (17-59); BILIRUBIN,TOTAL 8.3 mg/dL (0.1-1.4); CALCIUM 7.9 mg/dL (8.5-10.4); CARBON DIOXIDE 28 mEq/l (22-31); CHLORIDE 114 mEq/L (97-110); CREATININE 0.6 mg/dL (0.7-1.3); GLOMERULAR FILTRATION RATE > 60; GLUCOSE 106 mg/dL (70-100); MAGNESIUM 2.4 mg/dL (1.6-2.3); POTASSIUM 3.8 mEq/L (3.5-5.2); SODIUM 147 mEq/L (134-144); TOTAL PROTEIN 4.2 g/dL (6.3-8.2)
[2017-03-21 06:41] LABS: SCAN POSITIVE
[2017-03-21 06:45] LABS: MACROCYTES 1+; PLATELET ESTIMATE DECREASED (ADEQ); TOXIC GRANULATION PRESENT
[2017-03-21 07:02] LABS: BILIRUBIN-CONJUGATED 7.1 mg/dL (0.0-0.5); BILIRUBIN-UNCONJUGATED 1.2 mg/dL (0.0-1.1)
[2017-03-21 07:05] LABS: PLATELET ESTIMATE DECREASED (ADEQ)
[2017-03-21] MEDS: chlordiazePOXIDE 25 MG CAP TUBE SCH ×3 (08:52→21:17)
[2017-03-21] MEDS: THIAMINE HCL 100 MG TAB TUBE SCH (08:52)
[2017-03-21] MEDS: NICOTINE 14 MG/24 HR PATCH TD SCH (08:52)
[2017-03-21] MEDS: CHLORHEXIDINE GLUCONATE 15 ML UDL PO SCH ×2 (08:53→19:22)
[2017-03-21] MEDS: FAMOTIDINE 20 MG/NACL 50 ML IV SCH ×2 (08:53→21:25)
--- NOTE | 2017-03-21 11:29 | PCMIDPN ---
Assessment/Plan: Assessment: Sepsis secondary to Acinetobacter bacteremia due to pneumonia. Patient is markedly improved as far as the sepsis parameters go. He is being extubated today. Will continue on monotherapy with meropenem. Suspect the patient will need approximately 10 days treatment. No need to follow up with repeat blood cultures. Plan: 1. Continue monotherapy with meropenem. 2. Follow clinical improvement. Subjective: Patient is resting comfortably in the ICU. He appears alert although remains intubated and mildly sedated. No new issues. Objective: Meropenem # 3 Vital Signs Temp Pulse Resp BP Pulse Ox 36.8 C 93 17 101/68 100 03/21/17 10:00 03/21/17 10:00 03/21/17 10:00 03/21/17 10:00 03/21/17 10:00 Microbiology 03/18/17 20:20 - Final Sputum, Induced/Suctioned Laboratory Results 03/21/17 06:05 03/21/17 06:05 03/20/17 03/21/17 03/22/17 05:59 05:59 05:59 Intake Total 5024.1 3220.0 Output Total 2250 3420 Balance 2774.1 -200.0 - Physical Exam General Appearance: WD/WN, alert, no apparent distress, other (Intubated), No non-toxic Respiratory: crackles, No lungs clear, No normal breath sounds Cardiac/Chest: regular rate, rhythm, No tachycardia Skin: normal color, warm/dry, No rash Neuro/Psych: alert ICD10 Worksheet Patient Problems: Problems Problem Status Onset Pneumonia Acute Severe sepsis Acute Shortness of breath Acute
[2017-03-21] MEDS ORDERED: POTASSIUM Cl (KCl) 100 ML IV ONE (12:00)
[2017-03-21] MEDS ORDERED: K PHOS 15 MMOL in D5W 250 ML IV ONE (12:00)
--- NOTE | 2017-03-21 13:14 | PDINTPN ---
Paramedic Instructor Progress Note Assessment/Plan: Assessment: * Septic Shock: Due to acinetobacter pneumonia. Resolving, off norepinephrine. * Acinetobacter Pneumonia: On Meropenem. Chest x-ray still shows an impressive infiltrate but clinically doing better. * Hypercarbic and hypoxemic respiratory failure: Tolerating CPAP without difficulty. Good weaning parameters, on 40%, few secretions. Will plan on extubating today. * Thrombocytopenia: Severe, 12K today. No evidence of significant active bleeding.. * Hypoglycemia: Recurred, responded to D10. * ? EtOH: No signs of significant withdrawal. At time * Sinus tachycardia: Improved with treatment of sepsis, but still tachycardic. * Nutrition: Started tube feeds, but high residuals at times. Will pull feeding tube post extubation if swallowing function appears to be acceptable.. Plan: Extubate today. Continue bronchopulmonary therapies. Add IS. Continue diuresis. Continue antibiotics per ID. Follow Platelets. Swallow evaluation post extubation as possible. Mobilize as the possible post extubation. 50 minutes critical care time spent with patient: Multiple visits regarding patient assessment pre and post extubation. Discussed with hospitalist, respiratory therapy, nursing, and the ICU multi disciplinary team. Subjective: Lightly sedated, on ventilator. Appears comfortable. Responses. Tolerating CPAP weans. On 40%. Objective: Vital Signs Temp Pulse Resp BP Pulse Ox 37.2 C 105 H 27 H 103/70 100 03/21/17 12:00 03/21/17 12:00 03/21/17 12:00 03/21/17 12:00 03/21/17 12:00 Microbiology 03/18/17 20:20 - Final Sputum, Induced/Suctioned Laboratory Results 03/21/17 06:05 03/21/17 06:05 03/20/17 03/21/17 03/22/17 05:59 05:59 05:59 Intake Total 5024.1 3220.0 Output Total 2250 3420 Balance 2774.1 -200.0 PT 14.2 SEC (12.0-15.0) 03/21/17 06:05 INR 1.11 (0.83-1.16) 03/21/17 06:05 Laboratory Tests 03/20/17 03/21/17 03/21/17 05:20 06:05 06:05 PT 14.2 INR 1.11 APTT 28.8 Fibrinogen 423 D-Dimer 13.50 H pCO2 34 pO2 79 H Total CO2 22 L ABG pH 7.42 Total O2 Concentration 40.0 Actual Respiration Rate 18 PEEP 5 Pressure Support 10 CPAP YES Phosphorus 1.5 L D Magnesium 2.4 H Conjugated Bilirubin 7.1 H AST 510 H ALT 129 H Albumin 2.0 L CXR: Large left lower lobe infiltrate persists with smaller infiltrate and/or atelectasis at right base. Lines and tubes in good position. Physical Exam - Physical Exam General Appearance: no apparent distress, other (Sedated, arouses) EENT: PERRL/EOMI, ET tube, other (NG tube in place) Neck: normal inspection Respiratory: lungs clear, rales (Rales at bases, left greater than right), No rhonchi (Minimal secretions), No wheezing Cardiac/Chest: tachycardia Abdomen: non-tender, soft, No normal bowel sounds (Decreased, present) Male Genitalia: other (Williamson catheter in place, good urine output) Skin: normal color, warm/dry Extremities: No pedal edema Neuro/Psych: no motor/sensory deficits (Moves all extremities equally), No cognition abnormalities ICD10 Worksheet Patient Problems: Problems Problem Status Onset Pneumonia Acute Severe sepsis Acute Shortness of breath Acute
[2017-03-21] MEDS ORDERED: FUROSEMIDE 40 MG/4 ML VIAL IVP ONE (14:09)
--- NOTE | 2017-03-21 14:25 | ASMTCMCOM ---
CM Note CM Note Notes: Patient was extubated today. He is taking multiple antibiotics to address the source of his septic shock. Also on pressors. He is beginning to communicate more but is still very hard to understand. He does not seem to have a relationship with either [facility] or [facility], although I have placed a call to both to confirm. He mumbled that he has a friend named "Yong" but that this person is homeless as well. No therapies have been ordered, and during past ED visits, patient has discharged back to the streets. CM will follow. Date Signed: 03/21/2017 02:24 PM Electronically Signed By:Tonya Lake RN
[2017-03-21] MEDS: IPRATROPIUM/ALBUTEROL 3 ML DEYVIAL IH SCH ×2 (16:40→20:41)
--- NOTE | 2017-03-21 17:00 | HOSPPROG ---
Hospitalist Progress Note Assessment/Plan: 51 yo M with hx of etoh abuse pw sepsis and acinetobacter bacteremia # septic shock - was requiring levophed/vaso but now off; source is pna and bacteremia # bacteremia d/t acinetobacter - merrem, surveillance cultures showing ngtd, ID following # pneumonia - on merrem-acinobacter in sputum as well # acute respiratory failure d/t pneumonia - intubated 03/18; tolerating cpap this am with plan to extubated today # nutrition - TF with significant residuals, possible steatorrhea, lipase wnl # elevated troponin - suspect d/t demand - echo ok # DIC - d/t above - very low platelets # marked hypoglycemia - better, cont D5 as needed # etOH abuse - - w/d currently controlled on propofol; will start ciwa now that extubated # elevated LFTs - d/t sepsis and likely contribution of etoh abuse related liver disease # acidosis - resolving with aggressive IVF # electrolyte abnormalities - replete # ppx - no lovenox with low plts; pepcid Patient new to my care. Old records reviewed and summarized as above. Care plan reviewed with Dr. May and multidisciplinary care team on rounds. Subjective: no significant overnight events, patient is intubated but alert and calm Objective: Vital Signs Temp Pulse Resp BP Pulse Ox 37.4 C 102 H 31 H 119/86 H 100 03/21/17 16:00 03/21/17 16:40 03/21/17 16:40 03/21/17 16:00 03/21/17 16:40 Microbiology 03/18/17 20:20 - Final Sputum, Induced/Suctioned Sputum Culture - Final Acinobacter Baumanni Complex Laboratory Results 03/21/17 06:05 03/21/17 06:05 03/20/17 03/21/17 03/22/17 05:59 05:59 05:59 Intake Total 5024.1 3220.0 Output Total 2250 3420 Balance 2774.1 -200.0 PT 14.2 SEC (12.0-15.0) 03/21/17 06:05 INR 1.11 (0.83-1.16) 03/21/17 06:05 awake alert anicteric ETT in place rrr no mrg cta, coarse bs soft nt nd no cce warm dry well perfused following commands, alert ICD10 Worksheet Patient Problems: Problems Problem Status Onset Shortness of breath Acute Pneumonia Acute Severe sepsis Acute
[2017-03-21 17:49] LABS: POTASSIUM 3.1 mEq/L (3.5-5.2)
[2017-03-21] MEDS ORDERED: POTASSIUM Cl (KCl) 50 ML IV SCH (18:33)
[2017-03-21] MEDS: POTASSIUM Cl (KCl) 100 ML IV SCH ×2 (18:44→20:05)
[2017-03-22 00:40] LABS: POTASSIUM 3.4 mEq/L (3.5-5.2)
[2017-03-22] MEDS: POTASSIUM Cl (KCl) 50 ML IV SCH ×10 (01:21→23:22)
[2017-03-22] MEDS: INSULIN REGULAR HUMAN 100 UNIT/ML SC SCH ×6 (01:55→21:42)
[2017-03-22 04:59] LABS: % IMMATURE GRANULYOCYTES 2.3 % (0.0-1.1); ABSOLUTE IMMATURE GRANULOCYTES 0.17 10^3/uL (0.00-0.10); ABSOLUTE NRBC COUNT 0.02 10^3/uL (0-0.01); ADD DIFF? NO; ADD MORPH? NO; ADD SCAN? YES; ATYPICAL LYMPHOCYTE FLAG 0 (0-99); FRAGMENT RBC FLAG 0 (0-99); HEMATOCRIT 34.9 % (40.0-51.0); HEMOGLOBIN 12.3 g/dL (13.7-17.5); LIPEMIA HEMOLYSIS FLAG 90 (0-99); MEAN CELL HEMOGLOBIN 35.8 pg (27.9-34.1); MEAN CELL HEMOGLOBIN CONCENTR. 35.2 g/dL (32.4-36.7); MEAN CELL VOLUME 101.5 fL (81.5-99.8); MEAN PLATELET VOLUME 11.8 fL (8.7-11.7); NRBC-AUTO% 0.3 % (0.0-0.2); PLATELET CLUMPS FLAG 10 (0-99); RED BLOOD CELL COUNT 3.44 10^6/uL (4.40-6.38); RED CELL DISTRIBUTION WIDTH 16.7 % (11.5-15.2)
[2017-03-22 05:15] LABS: LEFT SHIFT FLG 300 (0-99); MAGNESIUM 2.3 mg/dL (1.6-2.3); POTASSIUM 3.5 mEq/L (3.5-5.2)
[2017-03-22 05:16] LABS: PLATELET COUNT 20 10^3/uL (150-400)
[2017-03-22] MEDS: HYDROCORTISONE 100 MG/2 ML VIAL IV SCH ×3 (05:20→18:28)
[2017-03-22 05:43] LABS: SCAN NEGATIVE
[2017-03-22 05:44] LABS: PLATELET ESTIMATE DECREASED (ADEQ)
[2017-03-22] MEDS: MEROPENEM 1 GM in NS 100 ML IV SCH ×3 (05:44→21:17)
[2017-03-22] MEDS: IPRATROPIUM/ALBUTEROL 3 ML DEYVIAL IH SCH ×4 (06:09→21:39)
[2017-03-22] MEDS: CHLORHEXIDINE GLUCONATE 15 ML UDL PO SCH ×2 (08:15→20:52)
[2017-03-22] MEDS: chlordiazePOXIDE 25 MG CAP TUBE SCH (08:15)
[2017-03-22] MEDS: FAMOTIDINE 20 MG/NACL 50 ML IV SCH (08:16)
[2017-03-22] MEDS: NICOTINE 14 MG/24 HR PATCH TD SCH (08:16)
[2017-03-22] MEDS: THIAMINE HCL 100 MG TAB TUBE SCH (08:16)
--- NOTE | 2017-03-22 08:24 | PCMIDPN ---
Assessment/Plan: Assessment/Plan: 1. Acinetobacter bacteremia/sepsis with pneumonia: -Currently on Merem for above. -f/u blood cx from 03/20/17 ngtd - pansensitive isolate 2. Elevated LFT's -acute elevation yesterday with AST 510, ALt 129, TB 8.3 -previous abd USG with gall bladder sludge. - recommend Ct abd to further evaluate - could be related to merem as well. -if no liver/biliary pathology identified, will adjust antibiotics further - care coordinated with embedded linux engineer, RN, hospitalist team 3. thrombocytopenia: - slighlty improved today Meds merem 1g q8- 03/18/17 Subjective: afaebrile. denies abd pain. denies sob. coughing. Objective: Vital Signs Temp Pulse Resp BP Pulse Ox 37.1 C 101 H 17 122/87 H 95 03/22/17 08:00 03/22/17 08:00 03/22/17 08:00 03/22/17 08:00 03/22/17 08:00 Microbiology 03/18/17 20:20 - Final Sputum, Induced/Suctioned Sputum Culture - Final Acinobacter Baumanni Complex Laboratory Results 03/22/17 04:35 03/22/17 04:35 03/21/17 03/22/17 03/23/17 05:59 05:59 05:59 Intake Total 3220.0 1772 Output Total 3420 3600 Balance -200.0 -1828 - Physical Exam General Appearance: other (drowsy, answers only some questions. reclined in recliner. ) Respiratory: coarse breath sounds Cardiac/Chest: regular rate, rhythm Extremities: No swelling Abdomen: normal bowel sounds, soft, other (possible mild guarding), No distended Skin: No erythema - Time Spent With Patient Time Spent with Patient: greater than 35 minutes Time Spent with Patient: Greater than 35 minutes spent on this patients care, greater than 50% of time spent counseling, educating, and coordinating care regarding the above mentioned plan. ICD10 Worksheet Patient Problems: Problems Problem Status Onset Pneumonia Acute Severe sepsis Acute Shortness of breath Acute
--- NOTE | 2017-03-22 09:32 | PDINTPN ---
Chief Executive Or Managing Director Progress Note Assessment/Plan: Assessment: * Septic Shock: Due to acinetobacter pneumonia. Resolving, off norepinephrine. * Acinetobacter Pneumonia: On Meropenem. Chest x-ray still shows an impressive infiltrate but clinically doing better. * Hypercarbic and hypoxemic respiratory failure: Stable post extubation yesterday. On 4 L. * Thrombocytopenia: Severe, 20K today, better. No evidence of significant active bleeding.. * Hypoglycemia: Resolved, glucoses okay. * Increased bilirubin and LFTs. Up today. Probably secondary to EtOH?, possibly medications? Ultrasound showed only gallbladder sludge. For CT of the abdomen today. * ETOH: On CIWA now that he is extubated. * Sinus tachycardia: Improved with treatment of sepsis, but still tachycardic. * Nutrition: Started tube feeds, but high residuals at times. Will pull feeding tube post extubation if swallowing function appears to be acceptable.. Plan: CT abdomen today. Follow lab, chest x-ray, LFTs Continue bronchopulmonary therapies/IS. Continue CIWA. Increase mobilization as tolerated. Continue diuresis. Continue antibiotics per ID. Follow Platelets. Swallow evaluation today. 40 minutes critical care time spent with patient: Discussed with Hospitalist, RT, nursing, and the ICU multi disciplinary team. Subjective: Up in chair. Somnolent, arousable, oriented x 2-3. Stood with assistance at the side of his chair. Objective: Vital Signs Temp Pulse Resp BP Pulse Ox 37.1 C 101 H 17 122/87 H 95 03/22/17 08:00 03/22/17 08:00 03/22/17 08:00 03/22/17 08:00 03/22/17 08:00 Microbiology 03/18/17 20:20 - Final Sputum, Induced/Suctioned Sputum Culture - Final Acinobacter Baumanni Complex Laboratory Results 03/22/17 04:35 03/22/17 04:35 03/21/17 03/22/17 03/23/17 05:59 05:59 05:59 Intake Total 3220.0 1772 Output Total 3420 3600 Balance -200.0 -1828 PT 14.2 SEC (12.0-15.0) 03/21/17 06:05 INR 1.11 (0.83-1.16) 03/21/17 06:05 Laboratory Tests 09/19/17 09/19/17 04:35 06:06 POC Glucose 152 H Phosphorus 2.1 L D Magnesium 2.3 CXR: Some improvement in infiltrates bilaterally. Large infiltrate persists on the left. Physical Exam - Physical Exam General Appearance: no apparent distress, other (Lethargic, arouses) EENT: PERRL/EOMI, scleral icterus (R), scleral icterus (L), other (Nasal cannula in place at 4 L.) Neck: normal inspection (No obvious JVD) Respiratory: decreased breath sounds, rales (Present bilaterally, with consolidative changes at the right base) Cardiac/Chest: tachycardia (Sinus), No gallop Abdomen: normal bowel sounds, non-tender, soft, No hepatomegaly Male Genitalia: other (Williamson catheter in place, good urine output with Lasix over the last 24 hours: O>I) Extremities: pedal edema (Train) Neuro/Psych: no motor/sensory deficits (Moves all extremities equally), cognition abnormalities (Lethargic, variably oriented.) ICD10 Worksheet Patient Problems: Problems Problem Status Onset Shortness of breath Acute Pneumonia Acute Severe sepsis Acute
[2017-03-22] MEDS ORDERED: POTASSIUM Cl (KCl) 20 MEQ in D5W NS 1,000 ML IV SCH (09:45)
[2017-03-22] MEDS ORDERED: K PHOS 10 MMOL in D5W 250 ML IV ONE (12:00)
--- NOTE | 2017-03-22 12:41 | HOSPPROG ---
Hospitalist Progress Note Assessment/Plan: 51 yo M with hx of etoh abuse pw sepsis and acinetobacter bacteremia # septic shock - was requiring levophed/vaso but now off; source is pna and bacteremia # bacteremia d/t acinetobacter - merrem, surveillance cultures showing ngtd, ID following # pneumonia - on merrem-acinobacter in sputum as well, on repeat cxr personally reviewed LLL pna appears improved but now with new fairly large right sided infiltrate # acute respiratory failure d/t pneumonia - intubated 03/18 and extubated 03/21 # nutrition - patient self d/c'ed his G tube, remains too unresponsive to take PO but hoping that he will be able to take PO soon # acute encephalopathy: patient now extubated and off of sedation but remains essentially unresponsive despite being alert # elevated troponin - suspect d/t demand - echo ok # DIC - d/t above - very low platelets # marked hypoglycemia - better, cont D5 as needed, has become a bit hyperglycemic now and ssi ordered # etOH abuse - - no significant w/d # elevated LFTs - d/t sepsis and likely contribution of etoh abuse related liver disease, has continued to trend up and could be related to abx versus intrinsic liver disease, abd ct pending for further evaluation # acidosis - resolving with aggressive IVF # electrolyte abnormalities - replete # ppx - no lovenox with low plts; pepcid Care plan reviewed with Dr. May and Dr. Yates and multidisciplinary care team on rounds. Subjective: no acute overnight events, extubated and doing well Objective: Vital Signs Temp Pulse Resp BP Pulse Ox 37.3 C 104 H 16 118/78 93 03/22/17 12:00 03/22/17 12:00 03/22/17 12:00 03/22/17 12:00 03/22/17 12:00 Microbiology 03/18/17 20:20 - Final Sputum, Induced/Suctioned Sputum Culture - Final Acinobacter Baumanni Complex Laboratory Results 03/22/17 04:35 03/22/17 04:35 03/21/17 03/22/17 03/23/17 05:59 05:59 05:59 Intake Total 3220.0 1772 Output Total 3420 3600 Balance -200.0 -1828 PT 14.2 SEC (12.0-15.0) 03/21/17 06:05 INR 1.11 (0.83-1.16) 03/21/17 06:05 awake alert slow to respond to questions anicteric op clear, poor dentition rrr tachy coarse bs, scattered rhonchi soft nt nd no cce warm dry well perfused alert, following commanda ICD10 Worksheet Patient Problems: Problems Problem Status Onset Pneumonia Acute Severe sepsis Acute Shortness of breath Acute
[2017-03-22 13:37] LABS: POTASSIUM 3.3 mEq/L (3.5-5.2)
[2017-03-22] MEDS ORDERED: IOPAMIDOL (ISOVUE-300) 100 ML BTL ONE (14:14)
[2017-03-22 20:32] LABS: POTASSIUM 6.3 mEq/L (3.5-5.2)
[2017-03-22] MEDS: FAMOTIDINE 20 MG TAB TUBE SCH (20:52)
[2017-03-22 21:10] LABS: POTASSIUM 3.4 mEq/L (3.5-5.2)
[2017-03-23] MEDS: HYDROCORTISONE 100 MG/2 ML VIAL IV SCH ×4 (01:09→22:41)
[2017-03-23] MEDS: INSULIN REGULAR HUMAN 100 UNIT/ML SC SCH ×4 (01:14→22:27)
[2017-03-23 04:17] LABS: ABSOLUTE NRBC COUNT 0.02 10^3/uL (0-0.01); ADD DIFF? YES; ADD MORPH? NO; ATYPICAL LYMPHOCYTE FLAG 50 (0-99); FRAGMENT RBC FLAG 0 (0-99); HEMATOCRIT 34.6 % (40.0-51.0); HEMOGLOBIN 12.3 g/dL (13.7-17.5); LEFT SHIFT FLG 190 (0-99); LIPEMIA HEMOLYSIS FLAG 90 (0-99); MEAN CELL HEMOGLOBIN 36.1 pg (27.9-34.1); MEAN CELL HEMOGLOBIN CONCENTR. 35.5 g/dL (32.4-36.7); MEAN CELL VOLUME 101.5 fL (81.5-99.8); MEAN PLATELET VOLUME 14.2 fL (8.7-11.7); NRBC-AUTO% 0.2 % (0.0-0.2); PLATELET CLUMPS FLAG 0 (0-99); PLATELET COUNT 35 10^3/uL (150-400); RED BLOOD CELL COUNT 3.41 10^6/uL (4.40-6.38); RED CELL DISTRIBUTION WIDTH 17.2 % (11.5-15.2)
[2017-03-23 04:18] LABS: ADD SCAN? NO
[2017-03-23 04:40] LABS: ALANINE AMINOTRANSFERASE 172 IU/L (21-72); ALBUMIN 1.9 g/dL (3.5-5.0); ALKALINE PHOSPHATASE 126 IU/L (38-126); ANION GAP 4 mEq/L (8-16); ASPARTATE AMINOTRANSFERASE 303 IU/L (17-59); BILIRUBIN,TOTAL 7.5 mg/dL (0.1-1.4); CALCIUM 8.2 mg/dL (8.5-10.4); CARBON DIOXIDE 32 mEq/l (22-31); CHLORIDE 118 mEq/L (97-110); CREATININE 0.6 mg/dL (0.7-1.3); GLOMERULAR FILTRATION RATE > 60; GLUCOSE 125 mg/dL (70-100); POTASSIUM 3.4 mEq/L (3.5-5.2); SODIUM 154 mEq/L (134-144); TOTAL PROTEIN 4.6 g/dL (6.3-8.2)
[2017-03-23 04:47] LABS: BILIRUBIN-CONJUGATED 5.5 mg/dL (0.0-0.5)
[2017-03-23 04:59] LABS: PLATELET ESTIMATE DECREASED (ADEQ)
[2017-03-23 05:04] LABS: HYPOCHROMIA 1+; MACROCYTES 1+; TARGET CELLS 1+; TOXIC GRANULATION PRESENT
[2017-03-23] MEDS: POTASSIUM Cl (KCl) 50 ML IV SCH ×3 (05:07→06:27)
[2017-03-23] MEDS: MEROPENEM 1 GM in NS 100 ML IV SCH ×3 (05:07→22:06)
[2017-03-23] MEDS: IPRATROPIUM/ALBUTEROL 3 ML DEYVIAL IH SCH ×4 (05:31→22:02)
[2017-03-23] MEDS: FAMOTIDINE 20 MG TAB TUBE SCH ×2 (08:15→22:06)
[2017-03-23] MEDS: CHLORHEXIDINE GLUCONATE 15 ML UDL PO SCH ×2 (08:15→22:08)
[2017-03-23] MEDS: THIAMINE HCL 100 MG TAB TUBE SCH (08:16)
[2017-03-23] MEDS: NICOTINE 14 MG/24 HR PATCH TD SCH (08:18)
[2017-03-23] MEDS: FUROSEMIDE 40 MG/4 ML VIAL IVP SCH (11:33)
--- NOTE | 2017-03-23 11:44 | PDINTPN ---
Certification Technician Progress Note Assessment/Plan: Assessment: 51-year-old chronic alcoholic admitted 03/17 with severe pneumonia and septic shock. He had progressive respiratory failure and was intubated in the afternoon on 03/18. He had little in the way of secretions. Cultures have grown out Acinetobacter. He slowly improved on the ventilator and was extubated 03/21. Stable since, with continued impressive infiltrate on the left. * Septic Shock: Due to acinetobacter pneumonia. Resolving, off norepinephrine. * Acinetobacter Pneumonia: On Meropenem. Chest x-ray still shows an impressive infiltrates L>R. but clinically he continues to improve. * Hypercarbic and hypoxemic respiratory failure: Stable post extubation. On 4 L. * Thrombocytopenia: Severe, improving. 35K today. No evidence of active bleeding. * Hypoglycemia: Resolved, glucoses okay. Vitamin C may affect point of care glucose measurements. * Increased bilirubin and LFTs. Probably secondary to EtOH, possibly medications? No surgical issues identified by ultrasound or CT scan. * ETOH: On CIWA post extubation. Scores low. * Sinus tachycardia: Improved with treatment of sepsis, but still tachycardic. * Nutrition: He pulled out his feeding tube. For swallow evaluation today. Plan: Swallow evaluation today. Follow lab, chest x-ray, LFTs Continue bronchopulmonary therapies/IS. Continue CIWA. Increase mobilization as tolerated. Continue Lasix diuresis. Decrease steroids. Continue antibiotics per ID. Follow Platelets. Can change level of care to SDU 35 minutes critical care time spent with patient: Discussed with Hospitalist, RT, nursing, and the ICU multi disciplinary team. Subjective: Up in the chair. Remains quite weak and fatigued. Some shortness of breath. Not bringing up much mucus. Denies pain. Objective: Vital Signs Temp Pulse Resp BP Pulse Ox 36.9 C 79 26 H 130/88 H 96 03/23/17 08:00 03/23/17 10:00 03/23/17 10:00 03/23/17 10:00 03/23/17 10:00 Laboratory Results 03/23/17 04:08 03/23/17 04:08 03/22/17 03/23/17 03/24/17 05:59 05:59 05:59 Intake Total 1772 2007 Output Total 3600 1600 Balance -1828 407 PT 14.2 SEC (12.0-15.0) 03/21/17 06:05 INR 1.11 (0.83-1.16) 03/21/17 06:05 Laboratory Tests 03/17/17 03/18/17 03/18/17 23:00 12:31 18:15 Calcium Phosphorus Total Bilirubin AST ALT Albumin Stool Occult Bld Scrn POSITIVE H C. difficile Tox (PCR) Hepatitis A IgM Ab NEGATIVE Hep Bs Antigen NEGATIVE Hep B Core IgM Ab NEGATIVE Hepatitis C Antibody NEGATIVE HIV 1&2 Antibody NEGATIVE 03/21/17 03/23/17 20:00 04:08 Calcium 8.2 L Phosphorus 2.2 L Total Bilirubin 7.5 H AST 303 H ALT 172 H Albumin 1.9 L Stool Occult Bld Scrn C. difficile Tox (PCR) NEGATIVE Hepatitis A IgM Ab Hep Bs Antigen Hep B Core IgM Ab Hepatitis C Antibody HIV 1&2 Antibody CXR: Extensive infiltrate persists on the left, slightly better. Right-sided patchy infiltrates are smaller/less dense. CT abdomen: Cirrhosis, hepatitis. No gallstones. Some gallbladder thickening : Nonspecific. Cannot absolutely rule out acalculous cholecystitis. Some ascites present. No surgical issues identified for a increased bilirubin and LFTs. Physical Exam - Physical Exam General Appearance: no apparent distress, other (Lethargic, arouses, appropriately responsive. Oriented to person place and month.) EENT: PERRL/EOMI, other (Nasal cannula at 4 L) Neck: normal inspection (No JVD) Respiratory: lungs clear (Anteriorly), decreased breath sounds (At bases), rales (Left greater than right), No rhonchi, No wheezing Cardiac/Chest: regular rate, rhythm Abdomen: normal bowel sounds, non-tender, soft Male Genitalia: other (Williamson catheter in place. Good urine output) Skin: normal color, warm/dry Extremities: pedal edema (Trace +) Neuro/Psych: no motor/sensory deficits (Moves all extremities equally. Globally weak. Needs assistance to stand), cognition abnormalities (Improving) ICD10 Worksheet Patient Problems: Problems Problem Status Onset Pneumonia Acute Severe sepsis Acute Shortness of breath Acute
[2017-03-23] MEDS: LORazepam 2 MG/ML INJ IVP PRN (15:01)
--- NOTE | 2017-03-23 15:10 | HOSPPROG ---
Hospitalist Progress Note Assessment/Plan: 51 yo M with hx of etoh abuse pw sepsis and acinetobacter bacteremia # septic shock - was requiring levophed/vaso but now off; source is pna and bacteremia # bacteremia d/t acinetobacter - merrem, surveillance cultures showing ngtd, ID following # pneumonia - on merrem-acinobacter in sputum as well, on repeat cxr personally reviewed LLL pna appears improved but now with new fairly large right sided infiltrate # acute respiratory failure d/t pneumonia - intubated 03/18 and extubated 03/21, due to above, doing well on low flow o2 # nutrition - patient self d/c'ed his G tube, now able to take po with dysphagia diet # acute encephalopathy: # elevated troponin - suspect d/t demand - echo ok # DIC - d/t sepsis - platelets now improving # marked hypoglycemia - better, cont D5 as needed, has become a bit hyperglycemic now and ssi ordered # etOH abuse - - no significant w/d # elevated LFTs - d/t sepsis and likely contribution of etoh abuse related liver disease, has continued to trend up and could be related to abx versus intrinsic liver disease, abd ct personally reviewed showing e/o cirrhosis as well as moderate enhancement of GB wall w/pericholecystic fluid but no stones-- likely due to intrinsic liver disease, less likely acalculous cholecystitis # hypernatremia: increased now to 154, will start D5 overnight # acidosis - resolved # electrolyte abnormalities - replete as needed # ppx - no lovenox until plts > 50, scd's, pepcid Care plan reviewed with Dr. May multidisciplinary care team on rounds. Subjective: no significant overnight events, patient doing well since being extubated, more alert and interctive today Objective: Vital Signs Temp Pulse Resp BP Pulse Ox 36.9 C 109 H 17 123/91 H 94 03/23/17 08:00 03/23/17 12:00 03/23/17 12:00 03/23/17 12:00 03/23/17 12:00 Laboratory Results 03/23/17 04:08 03/23/17 04:08 03/22/17 03/23/17 03/24/17 05:59 05:59 05:59 Intake Total 1772 2007 Output Total 3600 1600 1000 Balance -1828 407 -1000 PT 14.2 SEC (12.0-15.0) 03/21/17 06:05 INR 1.11 (0.83-1.16) 03/21/17 06:05 ICD10 Worksheet Patient Problems: Problems Problem Status Onset Pneumonia Acute Severe sepsis Acute Shortness of breath Acute
--- NOTE | 2017-03-23 15:39 | ASMTCMCOM ---
CM Note CM Note Notes: Patient with markedly different affect and ability to communicate today. He was able to tell me that he has been homeless in [place] for a few months after getting asked to leave his parents home in [place] early this summer. According to the patient, he has had many periods of sobriety and employment (he was last employed in [place] 01/16 - 10/18). He is currently hanging out with a man named "[place]" who he alternately calls his friend and says is stealing money from him. [place] called patient today but patient did not want to speak to him. Patient gave me his parent's phone number ([phone]), and I spoke with his mother Enid who has been worried about him. She corroborates his story and expresses guilt that she can't help him more. I spoke with patient at length today about the severity of his condition right now and the impossibility of him returning to the streets. I spoke about the option of a 30 day Medicaid stay at a SNF to which he did not respond. I explained that the hospital would not recommend that he return to the streets in his debilitated condition. I started the paperwork needed for a SNF stay but patient was not able to complete it. CM will continue to follow and hopefully be able to implement a safe discharge plan for patient. Date Signed: 03/23/2017 03:39 PM Electronically Signed By:Tonya Lake RN
--- NOTE | 2017-03-23 17:14 | PCMIDPN ---
Assessment/Plan: Assessment: Sepsis secondary to Acinetobacter bacteremia due to pneumonia. Patient continues to show clinical improvement. Plan to continue meropenem monotherapy. No need to follow up with repeat blood cultures. Plan: 1. Continue monotherapy with meropenem. 2. Follow clinical improvement. 03/23/17 17:12 Subjective: Patient is awake and alert. Able to carry on a conversation. Denies significant cough. No shortness of breath. No fevers or chills. Objective: Meropenem # 5 Vital Signs Temp Pulse Resp BP Pulse Ox 36.9 C 93 23 H 117/79 95 03/23/17 08:00 03/23/17 17:07 03/23/17 17:07 03/23/17 16:00 03/23/17 17:07 Laboratory Results 03/23/17 04:08 03/23/17 04:08 03/22/17 03/23/17 03/24/17 05:59 05:59 05:59 Intake Total 1772 2006 Output Total 3600 1600 1000 Balance -1828 407 -1000 - Physical Exam General Appearance: WD/WN, alert, no apparent distress, non-toxic Respiratory: lungs clear, normal breath sounds, No respiratory distress Cardiac/Chest: regular rate, rhythm, tachycardia (Mildly) Extremities: non-tender, normal inspection Skin: normal color, warm/dry, No rash Neuro/Psych: alert, normal mood/affect, oriented x 3 ICD10 Worksheet Patient Problems: Problems Problem Status Onset Pneumonia Acute Severe sepsis Acute Shortness of breath Acute
[2017-03-23 18:44] LABS: POTASSIUM 3.6 mEq/L (3.5-5.2)
[2017-03-23] MEDS ORDERED: POTASSIUM CL 20 MEQ TAB PO ONE (22:15)
[2017-03-23] MEDS ORDERED: POTASSIUM CL 20 MEQ/15 ML UDCUP TUBE ONE (22:15)
[2017-03-23] MEDS ORDERED: POTASSIUM CL 20 MEQ PKT PO ONE (22:30)
[2017-03-23] MEDS ORDERED: ACETAMINOPHEN 325 MG TAB PO PRN (23:12)
[2017-03-24 00:40] LABS: POTASSIUM 2.8 mEq/L (3.5-5.2)
[2017-03-24] MEDS: POTASSIUM Cl (KCl) 50 ML IV SCH ×5 (01:51→12:30)
[2017-03-24] MEDS ORDERED: POTASSIUM Cl (KCl) 50 ML IV SCH (02:00)
[2017-03-24] MEDS: MEROPENEM 1 GM in NS 100 ML IV SCH ×3 (05:23→21:49)
[2017-03-24 05:51] LABS: ABSOLUTE NRBC COUNT 0.05 10^3/uL (0-0.01); ADD DIFF? YES; ADD MORPH? NO; ATYPICAL LYMPHOCYTE FLAG 90 (0-99); FRAGMENT RBC FLAG 0 (0-99); HEMATOCRIT 33.2 % (40.0-51.0); HEMOGLOBIN 11.5 g/dL (13.7-17.5); LIPEMIA HEMOLYSIS FLAG 90 (0-99); MEAN CELL HEMOGLOBIN 35.9 pg (27.9-34.1); MEAN CELL HEMOGLOBIN CONCENTR. 34.6 g/dL (32.4-36.7); MEAN CELL VOLUME 103.8 fL (81.5-99.8); MEAN PLATELET VOLUME 13.2 fL (8.7-11.7); NRBC-AUTO% 0.4 % (0.0-0.2); PLATELET CLUMPS FLAG 0 (0-99); PLATELET COUNT 52 10^3/uL (150-400); RED CELL DISTRIBUTION WIDTH 17.8 % (11.5-15.2)
[2017-03-24 05:59] LABS: ADD SCAN? NO; LEFT SHIFT FLG 170 (0-99)
[2017-03-24] MEDS: IPRATROPIUM/ALBUTEROL 3 ML DEYVIAL IH SCH ×4 (06:06→20:54)
[2017-03-24 06:07] LABS: ALANINE AMINOTRANSFERASE 136 IU/L (21-72); ALKALINE PHOSPHATASE 116 IU/L (38-126); ANION GAP 6 mEq/L (8-16); ASPARTATE AMINOTRANSFERASE 183 IU/L (17-59); BILIRUBIN,TOTAL 4.9 mg/dL (0.1-1.4); CALCIUM 7.9 mg/dL (8.5-10.4); CARBON DIOXIDE 33 mEq/l (22-31); CHLORIDE 119 mEq/L (97-110); CREATININE 0.6 mg/dL (0.7-1.3); GLOMERULAR FILTRATION RATE > 60; GLUCOSE 131 mg/dL (70-100); POTASSIUM 3.6 mEq/L (3.5-5.2); SODIUM 158 mEq/L (134-144); TOTAL PROTEIN 4.4 g/dL (6.3-8.2)
[2017-03-24 06:23] LABS: BILIRUBIN-CONJUGATED 3.1 mg/dL (0.0-0.5); BILIRUBIN-UNCONJUGATED 1.8 mg/dL (0.0-1.1)
[2017-03-24 06:27] LABS: MACROCYTES 1+; PLATELET ESTIMATE DECREASED (ADEQ)
[2017-03-24] MEDS ORDERED: D5W 1,000 ML IV SCH (09:00)
[2017-03-24] MEDS: THIAMINE HCL 100 MG TAB TUBE SCH (09:45)
[2017-03-24] MEDS: FAMOTIDINE 20 MG TAB TUBE SCH (09:45)
[2017-03-24] MEDS: NICOTINE 14 MG/24 HR PATCH TD SCH (09:46)
[2017-03-24] MEDS: FUROSEMIDE 40 MG/4 ML VIAL IVP SCH (09:46)
[2017-03-24] MEDS: CHLORHEXIDINE GLUCONATE 15 ML UDL PO SCH (09:46)
[2017-03-24] MEDS: INSULIN REGULAR HUMAN 100 UNIT/ML SC SCH ×2 (09:50→21:49)
--- NOTE | 2017-03-24 10:52 | PCMIDPN ---
Assessment/Plan: # Sepsis secondary to Acinetobacter bacteremia complicating left side pneumonia. Off pressors, extubated. -- continue meropenem -- plan a total of 2 weeks of IV antibiotics, Likely able to step-down to p.o. antibiotics at discharge. # Low-grade fever and mild leukocytosis: No focal signs of infection, continue to monitor. Cdiff neg 03/21. Could consider drug reaction, going against that is fever and LFT trending down. # Elevated LFTs, bilirubin/bilirubin tinged resp secretions and urine, US show hepatomegaly, INR prolonged, low platelets. Could have some underlying liver dysfunction but also could be due to severe sepsis. LFTs are generally trending down medications Meropenem 1 g IV Q 8, # 6 microbiology 03/18 sputum culture: Acinetobacter 03/17 Blood cultures 07/05 Acinetobacter GI panel PCR and respiratory panel PCR negative Subjective: perseverating on discharge and living with his mother in [place] who is in her mid 70s reports he has been homeless for less than 6 months, this time much less chest pain with deep breaths Objective: Vital Signs Temp Pulse Resp BP Pulse Ox 36.6 C 93 26 H 110/75 97 03/24/17 08:00 03/24/17 08:00 03/24/17 08:00 03/24/17 08:00 03/24/17 08:00 Laboratory Results 03/24/17 05:30 03/24/17 05:30 03/23/17 03/24/17 03/25/17 05:59 05:59 05:59 Intake Total 2006 1478 Output Total 1600 1175 Balance 407 303 - Physical Exam General Appearance: alert EENT: other ( conjunctiva injected) Respiratory: coarse breath sounds ( diffusely), No respiratory distress, No accessory muscle use Cardiac/Chest: tachycardia Extremities: No pedal edema Abdomen: normal bowel sounds, non-tender, soft Male Genitalia: No madrigal, No scrotal edema Neuro/Psych: alert - Line/s RUE PICC Lines: No drainage, No erythema ICD10 Worksheet Patient Problems: Problems Problem Status Onset Pneumonia Acute Severe sepsis Acute Shortness of breath Acute
[2017-03-24] MEDS: HYDROCORTISONE 100 MG/2 ML VIAL IV SCH (12:30)
--- NOTE | 2017-03-24 13:08 | PDINTPN ---
Rig Superintendent Progress Note Assessment/Plan: Assessment: 51-year-old chronic alcoholic admitted 03/17 with severe pneumonia and septic shock. He had progressive respiratory failure and was intubated in the afternoon on 03/18. He had little in the way of secretions. Cultures have grown out Acinetobacter. He slowly improved on the ventilator and was extubated 03/21. Stable since, with continued impressive infiltrate on the left. * Septic Shock: Due to acinetobacter pneumonia. Resolved, on norepinephrine initially. * Acinetobacter Pneumonia: On Meropenem. Chest x-ray shows persistent infiltrates L>R. but clinically and by x-ray he continues to improve. * Hypercarbic and hypoxemic respiratory failure: On 4 L. * Thrombocytopenia: Severe initially, improving. 52K today. No bleeding. * Hypoglycemia: Resolved, glucoses okay. Vitamin C may have affected point of care glucose measurements. * Increased bilirubin and LFTs. Improving. Probably secondary to EtOH, possibly medications? No surgical issues identified by ultrasound or CT scan. * ETOH: On CIWA post extubation. No evidence of withdrawal at this time - will D/C CIWA protocols. * Sinus tachycardia: Improved. * Nutrition: Starting to take orals. * Hypernatremia: On D5W and oral fluids Plan: Continue care, continue antibiotics per Infectious Disease, continue bronchopulmonary therapies. Can transfer to a medical-surgical bed. Follow lab , CBC, chest x-ray, LFTs intermittently. D/C CIWA. Increase mobilization as tolerated. Continue Lasix diuresis. Decrease steroids. 30 minutes critical care time spent with patient: Discussed with Hospitalist, RT, nursing, and the ICU multi disciplinary team. Subjective: Up in chair. Brighter, a little stronger. Oriented x3. Still has some shortness of breath. No significant pain. Objective: Vital Signs Temp Pulse Resp BP Pulse Ox 36.8 C 94 18 99/60 L 90 L 03/24/17 12:00 03/24/17 12:00 03/24/17 12:00 03/24/17 12:00 03/24/17 12:00 Laboratory Results 03/24/17 05:30 03/24/17 05:30 03/23/17 03/24/17 03/25/17 05:59 05:59 05:59 Intake Total 2006 1478 Output Total 1600 1175 Balance 407 303 PT 14.2 SEC (12.0-15.0) 03/21/17 06:05 INR 1.11 (0.83-1.16) 03/21/17 06:05 Laboratory Tests 03/24/17 05:30 Calcium 7.9 L Phosphorus 3.1 D Total Bilirubin 4.9 H AST 183 H ALT 136 H Albumin 2.0 L CXR: Infiltrates persist, left greater than right, but appear to be significantly less dense. Physical Exam - Physical Exam General Appearance: alert ( Bur remains somewhat lethargic), no apparent distress EENT: PERRL/EOMI, other ( nasal cannula in place at 4 L) Neck: normal inspection ( no JVD) Respiratory: lungs clear ( anteriorly), decreased breath sounds ( at bases, with bibasilar fine rales left greater than right), rales, prolonged expiration , No rhonchi, No wheezing Cardiac/Chest: regular rate, rhythm, No gallop Abdomen: normal bowel sounds, non-tender, soft Skin: normal color, warm/dry Extremities: pedal edema ( trace +), swelling ( some fluid retention over lower back) Neuro/Psych: no motor/sensory deficits ( moves all extremities equally), No cognition abnormalities ( improved) ICD10 Worksheet Patient Problems: Problems Problem Status Onset Shortness of breath Acute Pneumonia Acute Severe sepsis Acute
[2017-03-24] MEDS ORDERED: HYDROCORTISONE 100 MG/2 ML VIAL IV SCH (13:22)
--- NOTE | 2017-03-24 14:20 | HOSPPROG ---
Hospitalist Progress Note Assessment/Plan: 51 yo M with hx of etoh abuse pw sepsis and acinetobacter bacteremia # septic shock - was requiring levophed/vaso but now off; source is pna and bacteremia # bacteremia d/t acinetobacter - merrem, surveillance cultures showing ngtd, ID following # pneumonia - on merrem-acinobacter in sputum as well, on repeat cxr personally reviewed LLL pna appears improved but now with new fairly large right sided infiltrate # acute respiratory failure d/t pneumonia - intubated 03/18 and extubated 03/21 # nutrition - patient self d/c'ed his G tube, remains too unresponsive to take PO but hoping that he will be able to take PO soon # acute encephalopathy: patient now extubated and off of sedation however remains intermittently confused and though following commands is not making complete sense. Improving. # elevated troponin - suspect d/t demand - echo ok # hypernatremia: added D5, continues to trend up # DIC - d/t above - very low platelets, improving # marked hypoglycemia - better, cont D5 as needed, has become a bit hyperglycemic now and ssi ordered # etOH abuse - - no significant w/d # elevated LFTs - d/t sepsis and likely contribution of etoh abuse related liver disease, improving though still elevated, related to abx versus intrinsic liver disease, abd ct with mild cirrhosis, hepatic steatosis and some gb wall thickening that could be related to acalculous cholecystitis, following. # acidosis - resolving with aggressive IVF # electrolyte abnormalities - replete # ppx - no lovenox with low plts; pepcid Care plan reviewed with Dr. May and multidisciplinary care team on rounds. Subjective: no significant overnight events, patient remains intermittently agitated and confused Objective: Vital Signs Temp Pulse Resp BP Pulse Ox 36.8 C 94 18 99/60 L 90 L 03/24/17 12:00 03/24/17 12:00 03/24/17 12:00 03/24/17 12:00 03/24/17 12:00 Laboratory Results 03/24/17 05:30 03/24/17 05:30 03/23/17 03/24/17 03/25/17 05:59 05:59 05:59 Intake Total 2006 1478 Output Total 1600 1175 Balance 407 303 PT 14.2 SEC (12.0-15.0) 03/21/17 06:05 INR 1.11 (0.83-1.16) 03/21/17 06:05 awake alert slow to respond anicteric op clear rrr no mrg dec bs at bases soft nt nd no cce scattered ecchymosis awake alert tangential ICD10 Worksheet Patient Problems: Problems Problem Status Onset Pneumonia Acute Severe sepsis Acute Shortness of breath Acute
--- NOTE | 2017-03-24 16:06 | ASMTCMCOM ---
CM Note CM Note Notes: Met w/pt initially in AM who was somewhat agitated, difficult to talk with, and wanting to go out for smoke. Met w/pt later in day and he was much calmer and able to easily have conversation with him about dc poc. Pt said he had talked w/his Mom and Dad on phone which really helped (they live in [place]). Pt said it is fine for us to share info with his parents. Pt is agreeable to SNF placement, did not have a specific facility in mind, will send out referrals. Pt would like to go to SNF in [facility] if possible. [id number] completed and faxed. TED w/f. Date Signed: 03/24/2017 04:05 PM Electronically Signed By:Chen Nagy RN
--- NOTE | 2017-03-24 16:34 | ASMTCMCOM ---
CM Note CM Note Notes: Referrals faxed to [facility] and [facility] for SNFplacement. Date Signed: 03/24/2017 04:33 PM Electronically Signed By:Chen Nagy RN
[2017-03-24] MEDS: FAMOTIDINE 20 MG TAB PO SCH (21:50)
[2017-03-25] MEDS: HYDROCORTISONE 100 MG/2 ML VIAL IV SCH ×3 (00:32→23:50)
[2017-03-25] MEDS: IPRATROPIUM/ALBUTEROL 3 ML DEYVIAL IH SCH ×4 (03:23→21:31)
[2017-03-25 06:28] LABS: ABSOLUTE NRBC COUNT 0.04 10^3/uL (0-0.01); ADD DIFF? YES; ADD MORPH? NO; ADD SCAN? NO; ATYPICAL LYMPHOCYTE FLAG 30 (0-99); FRAGMENT RBC FLAG 0 (0-99); HEMATOCRIT 33.1 % (40.0-51.0); HEMOGLOBIN 11.3 g/dL (13.7-17.5); LEFT SHIFT FLG 80 (0-99); LIPEMIA HEMOLYSIS FLAG 90 (0-99); MEAN CELL HEMOGLOBIN 35.5 pg (27.9-34.1); MEAN CELL HEMOGLOBIN CONCENTR. 34.1 g/dL (32.4-36.7); MEAN CELL VOLUME 104.1 fL (81.5-99.8); MEAN PLATELET VOLUME 13.4 fL (8.7-11.7); NRBC-AUTO% 0.3 % (0.0-0.2); PLATELET CLUMPS FLAG 0 (0-99); PLATELET COUNT 70 10^3/uL (150-400); RED BLOOD CELL COUNT 3.18 10^6/uL (4.40-6.38)
[2017-03-25 06:52] LABS: ALANINE AMINOTRANSFERASE 127 IU/L (21-72); ALKALINE PHOSPHATASE 120 IU/L (38-126); ASPARTATE AMINOTRANSFERASE 159 IU/L (17-59); BILIRUBIN,TOTAL 4.6 mg/dL (0.1-1.4); CALCIUM 8.1 mg/dL (8.5-10.4); CARBON DIOXIDE 31 mEq/l (22-31); CREATININE 0.6 mg/dL (0.7-1.3); GLOMERULAR FILTRATION RATE > 60
[2017-03-25 06:55] LABS: MACROCYTES 1+
[2017-03-25 06:56] LABS: PLATELET ESTIMATE DECREASED (ADEQ); TOXIC GRANULATION PRESENT
[2017-03-25 07:00] LABS: ALBUMIN 2.2 g/dL (3.5-5.0); ANION GAP 8 mEq/L (8-16); BILIRUBIN-CONJUGATED 2.8 mg/dL (0.0-0.5); BILIRUBIN-UNCONJUGATED 1.8 mg/dL (0.0-1.1); CHLORIDE 112 mEq/L (97-110); GLUCOSE 117 mg/dL (70-100); POTASSIUM 3.2 mEq/L (3.5-5.2); SODIUM 151 mEq/L (134-144); TOTAL PROTEIN 4.8 g/dL (6.3-8.2)
--- NOTE | 2017-03-25 09:48 | HOSPPROG ---
Hospitalist Progress Note Assessment/Plan: patient is a 51-year-old male who presented on March 17 to the emergency room shortness of breath, cough and left-sided chest wall pain. He has a history of alcohol abuse. He was noted to be septic on admission with associated Acinetobacter bacteremia on admission. today is my 1st encounter with the patient. Chart reviewed. *sepsis with associated septic shock source is pna and bacteremia was requiring pressors in the ICU/ now stabilized and off of them *Acinetobacter bacteremia with left side pneumonia. 0n Meropenem 1 gm IV q 8h #7 per ID 2 weeks of abx therapy *left lower lobe pna Merrem * Elevated troponin likely secondary to demand ischemia from the acute illness echocardiogram okay * hypernatremia D5 added to the fluids with some improvement patient not wanting to be connected to fluids drinking water/ will follow * DIC platelets improving * hypoglycemia this is overall resolved with a glucose of 117 this morning patient was also noted to be hyperglycemic, sliding scale insulin has been added * acidosis improving * elevated liver function test secondary to acute illness, hepatic steatosis and some gall bladder wall thickening continue monitoring * alcohol abuse no signs or symptoms of withdrawals * electrolyte abnormalities *nicotine dependence has a patch, will add gum to see if this helps * DVT prophylaxis Lovenox not initiated due to low platelet counts and DIC *Plan: patient is agitated / wants his investigative analyst and cigarettes, not withdrawing, not confused/ wants to go smoke/ encouraged him to stay/ appreciate nursing staff/ repeat labs in a.m. Subjective: Lázaro is feeling much better, would like to leave but willing to stay for now. Objective: Vital Signs Temp Pulse Resp BP Pulse Ox 37.1 C 84 20 118/75 85 L 03/25/17 07:51 03/25/17 07:51 03/25/17 07:51 03/25/17 07:51 03/25/17 07:51 Laboratory Results 03/25/17 06:20 03/25/17 06:20 03/24/17 03/25/17 03/26/17 05:59 05:59 05:59 Intake Total 1478 Output Total 1175 Balance 303 PT 14.2 SEC (12.0-15.0) 03/21/17 06:05 INR 1.11 (0.83-1.16) 03/21/17 06:05 - Physical Exam Constitutional: not in pain, chronically ill appearing, unkempt Eyes: PERRL Ears, Nose, Mouth, Throat: hearing normal Cardiovascular: regular rate and rhythym Respiratory: no respiratory distress Gastrointestinal: normoactive bowel sounds Skin: warm Musculoskeletal: full muscle strength Neurologic: AAOx3 Psychiatric: not encephalopathic, agitated ICD10 Worksheet Patient Problems: Problems Problem Status Onset Pneumonia Acute Severe sepsis Acute Shortness of breath Acute
[2017-03-25] MEDS: MEROPENEM 1 GM in NS 100 ML IV SCH ×4 (11:40→21:37)
[2017-03-25] MEDS: NICOTINE 14 MG/24 HR PATCH TD SCH (11:45)
[2017-03-25] MEDS: FUROSEMIDE 40 MG/4 ML VIAL IVP SCH (11:48)
[2017-03-25] MEDS: FAMOTIDINE 20 MG TAB PO SCH ×2 (11:51→21:37)
[2017-03-25] MEDS: THIAMINE HCL 100 MG TAB PO SCH (11:51)
[2017-03-25] MEDS: INSULIN REGULAR HUMAN 100 UNIT/ML SC SCH ×2 (11:52→22:05)
[2017-03-25] MEDS ORDERED: NICOTINE POLACRILEX 2 MG GUM B PRN (13:20)
[2017-03-25] MEDS ORDERED: POTASSIUM CL 10 MEQ TAB ONE (13:33)
[2017-03-25] MEDS: POTASSIUM CL 10 MEQ TAB PO ONE ×2 (13:44→14:04)
--- NOTE | 2017-03-25 13:53 | PCMIDPN ---
Assessment/Plan: Assessment: Sepsis secondary to Acinetobacter bacteremia due to pneumonia. Patient continues to show clinical improvement. Plan to continue meropenem monotherapy. No need to follow up with repeat blood cultures. Plan: 1. Continue monotherapy with meropenem. 2. Follow clinical improvement. 03/23/17 17:12 Subjective: Patient is sitting up in his chair in his hospital room. He is dressed in his normal clothes. States that he generally feels much better. Denies cough or shortness of breath. Objective: Meropenem # 7 Vital Signs Temp Pulse Resp BP Pulse Ox 36.3 C 98 20 110/64 84 L 03/25/17 12:00 03/25/17 12:00 03/25/17 12:00 03/25/17 12:00 03/25/17 12:00 Laboratory Results 03/25/17 06:20 03/25/17 06:20 03/24/17 03/25/17 03/26/17 05:59 05:59 05:59 Intake Total 1478 Output Total 1175 Balance 303 - Physical Exam General Appearance: WD/WN, alert, no apparent distress, non-toxic Respiratory: lungs clear, normal breath sounds, No respiratory distress Cardiac/Chest: regular rate, rhythm, No tachycardia Skin: normal color, warm/dry, No rash Neuro/Psych: alert, normal mood/affect, oriented x 3 ICD10 Worksheet Patient Problems: Problems Problem Status Onset Pneumonia Acute Severe sepsis Acute Shortness of breath Acute
--- NOTE | 2017-03-25 16:24 | SOAPPROG ---
SOAP Progress Note Assessment/Plan: Assessment: 51-year-old chronic alcoholic admitted 03/17 with severe pneumonia and septic shock. He had progressive respiratory failure and was intubated in the afternoon on 03/18. He had little in the way of secretions. Cultures have grown out Acinetobacter. He slowly improved on the ventilator and was extubated 03/21. Stable since, with continued impressive infiltrates on the left. Transferred to a medical-surgical bed on 03/24. Looking at a detention facility on discharge. * Septic Shock: Due to acinetobacter pneumonia. Resolved, on norepinephrine initially. * Acinetobacter Pneumonia: On Meropenem. Chest x-ray shows persistent infiltrates L>R. but clinically and by x-ray he continues to improve. * Hypercarbic and hypoxemic respiratory failure: On 4 L. * Thrombocytopenia: Severe initially, improving. 52K today. No bleeding. * Hypoglycemia: Resolved, glucoses okay. Vitamin C may have affected point of care glucose measurements. * Increased bilirubin and LFTs. Improving. Probably secondary to EtOH, possibly medications? No surgical issues identified by ultrasound or CT scan. * ETOH: On CIWA post extubation. No evidence of withdrawal. Off CIWA. * Sinus tachycardia: Resolving. * Nutrition: Starting to take orals. * Hypernatremia: On D5W and oral fluids * Disposition: SNF being considered. Plan: Continue care, continue antibiotics per Infectious Disease, continue bronchopulmonary therapies. Repeat chest x-ray tomorrow. Follow lab, CBC, LFTs intermittently. Increase mobilization as tolerated. Continue Lasix diuresis. Continue to work on disposition, SNF if needed. Subjective: Doing okay. Somewhat confused. Wants to go home. Dressed. Not wearing oxygen. Objective: Vital Signs Temp Pulse Resp BP Pulse Ox 36.3 C 98 20 110/64 84 L 03/25/17 12:00 03/25/17 12:00 03/25/17 12:00 03/25/17 12:00 03/25/17 12:00 Laboratory Results 03/25/17 06:20 03/25/17 06:20 03/24/17 03/25/17 03/26/17 05:59 05:59 05:59 Intake Total 1478 Output Total 1175 Balance 303 PT 14.2 SEC (12.0-15.0) 03/21/17 06:05 INR 1.11 (0.83-1.16) 03/21/17 06:05 Laboratory Tests 03/25/17 06:20 Calcium 8.1 L Phosphorus 2.8 Total Bilirubin 4.6 H AST 159 H ALT 127 H Albumin 2.2 L CXR: None today Physical Exam - Physical Exam General Appearance: no apparent distress, other (Somewhat somnolent, arousable. Sitting in bed, dressed) EENT: PERRL/EOMI, other (Not wearing nasal cannula. Supposed to be at 2 L.) Neck: normal inspection (No JVD) Respiratory: decreased breath sounds (Bilaterally), rales (Left greater than right), rhonchi (Few with cough), wheezing (Few present), prolonged expiration Cardiac/Chest: regular rate, rhythm Abdomen: normal bowel sounds, non-tender, soft Skin: warm/dry, pallor Extremities: pedal edema Neuro/Psych: no motor/sensory deficits, cognition abnormalities (Slightly confused, oriented times 2-1/2) ICD10 Worksheet Patient Problems: Problems Problem Status Onset Pneumonia Acute Severe sepsis Acute Shortness of breath Acute
[2017-03-25] MEDS ORDERED: D50W 25 GM/50 ML SYR IVP PRN (21:59)
[2017-03-26] MEDS: MEROPENEM 1 GM in NS 100 ML IV SCH ×3 (05:46→22:06)
[2017-03-26] MEDS: IPRATROPIUM/ALBUTEROL 3 ML DEYVIAL IH SCH ×4 (05:53→20:31)
[2017-03-26 06:08] LABS: ALANINE AMINOTRANSFERASE 128 IU/L (21-72); ALBUMIN 2.1 g/dL (3.5-5.0); ALKALINE PHOSPHATASE 149 IU/L (38-126); ANION GAP 6 mEq/L (8-16); ASPARTATE AMINOTRANSFERASE 154 IU/L (17-59); BILIRUBIN,TOTAL 4.6 mg/dL (0.1-1.4); CALCIUM 7.5 mg/dL (8.5-10.4); CARBON DIOXIDE 27 mEq/l (22-31); CHLORIDE 109 mEq/L (97-110); CREATININE 0.6 mg/dL (0.7-1.3); GLOMERULAR FILTRATION RATE > 60; GLUCOSE 93 mg/dL (70-100); POTASSIUM 3.2 mEq/L (3.5-5.2); SODIUM 142 mEq/L (134-144); TOTAL PROTEIN 4.8 g/dL (6.3-8.2)
[2017-03-26 07:14] LABS: BILIRUBIN-CONJUGATED 2.6 mg/dL (0.0-0.5)
[2017-03-26] MEDS ORDERED: INSULIN LISPRO 100 UNIT/ML SC SCH (07:30)
[2017-03-26] MEDS: FAMOTIDINE 20 MG TAB PO SCH ×3 (08:09→20:10)
[2017-03-26] MEDS: FUROSEMIDE 40 MG/4 ML VIAL IVP SCH (08:09)
[2017-03-26] MEDS: NICOTINE 14 MG/24 HR PATCH TD SCH ×2 (08:10→09:15)
[2017-03-26] MEDS: THIAMINE HCL 100 MG TAB PO SCH (09:15)
[2017-03-26] MEDS: INSULIN LISPRO 100 UNIT/ML SC SCH ×3 (09:20→17:20)
--- NOTE | 2017-03-26 10:19 | HOSPPROG ---
Hospitalist Progress Note Assessment/Plan: patient is a 51-year-old male who presented on March 17 to the emergency room shortness of breath, cough and left-sided chest wall pain. He has a history of alcohol abuse. He was noted to be septic on admission with associated Acinetobacter bacteremia on admission. *sepsis with associated septic shock source is pna and bacteremia was requiring pressors in the ICU/ now stabilized and off of them *Acinetobacter bacteremia with left side pneumonia. 0n Meropenem 1 gm IV q 8h #8 per ID 2 weeks of abx therapy *left lower lobe pna Merrem *Hypoxemia chest xray shows some improvement oxygen levels on room air in the 70's-low 90's improved with getting Lasix * Elevated troponin likely secondary to demand ischemia from the acute illness echocardiogram okay * hypernatremia resolved with drinking water * DIC platelets improving * hypoglycemia this is overall resolved with a glucose of 93 this morning patient was also noted to be hyperglycemic, sliding scale insulin has been added scheduled insulin dc * acidosis improving * elevated liver function test secondary to acute illness, hepatic steatosis and some gall bladder wall thickening continue monitoring * alcohol abuse no signs or symptoms of withdrawals *electrolyte abnormalities *nicotine dependence has a patch, will add gum to see if this helps * DVT prophylaxis Lovenox not initiated due to low platelet counts and DIC *Plan: continue current treatment/ will ask pulmonology how long on the iv steroids/can he go to oral? Subjective: Lázaro has no complaints/ says he is feeling better. Objective: Vital Signs Temp Pulse Resp BP Pulse Ox 37.0 C 86 16 124/71 H 79 L 03/26/17 07:24 03/26/17 07:24 03/26/17 07:24 03/26/17 07:24 03/26/17 09:19 Microbiology 03/20/17 14:12 Blood Culture - Final Blood 03/20/17 12:19 Blood Culture - Final Blood Laboratory Results 03/25/17 06:20 03/26/17 04:45 03/25/17 03/26/17 03/27/17 05:59 05:59 05:59 Intake Total 572 Output Total 350 1 Balance 222 -1 PT 14.2 SEC (12.0-15.0) 03/21/17 06:05 INR 1.11 (0.83-1.16) 03/21/17 06:05 - Physical Exam Constitutional: chronically ill appearing, unkempt Eyes: PERRL Ears, Nose, Mouth, Throat: hearing normal Cardiovascular: regular rate and rhythym Respiratory: no respiratory distress, bronchial breath sounds, rhonchi Gastrointestinal: normoactive bowel sounds Skin: warm Musculoskeletal: generalized weakness Neurologic: AAOx3 Psychiatric: interacting appropriately, poor insight ICD10 Worksheet Patient Problems: Problems Problem Status Onset Pneumonia Acute Severe sepsis Acute Shortness of breath Acute
[2017-03-26] MEDS: HYDROCORTISONE 100 MG/2 ML VIAL IV SCH ×2 (12:46→23:44)
[2017-03-26] MEDS ORDERED: PROTOCOL POTASSIUM 1 DOSE MISC PRN (13:03)
[2017-03-26] MEDS ORDERED: POTASSIUM CL 20 MEQ TAB PO ONE (13:15)
--- NOTE | 2017-03-26 14:02 | PCMIDPN ---
Assessment/Plan: Assessment: Sepsis secondary to Acinetobacter bacteremia due to pneumonia. Patient continues to show clinical improvement. 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 Would complete a 2 week course of treatment. No need to follow up with repeat blood cultures. Plan: 1. Change therapy from meropenem to Levaquin. 2. Follow clinical improvement. Subjective: Patient resting in his hospital bed. Patient was hypoxic at baseline this morning on room air to 79%. Chest x-ray is improved. He has no new complaints. Tolerating meropenem. Objective: Meropenem # 8 Vital Signs Temp Pulse Resp BP Pulse Ox 36.7 C 101 H 18 95/67 L 92 03/26/17 11:41 03/26/17 11:41 03/26/17 11:41 03/26/17 11:41 03/26/17 11:41 Microbiology 03/20/17 14:12 Blood Culture - Final Blood 03/20/17 12:19 Blood Culture - Final Blood Laboratory Results 03/25/17 06:20 03/26/17 04:45 03/25/17 03/26/17 03/27/17 05:59 05:59 05:59 Intake Total 572 Output Total 350 1 Balance 222 -1 - Physical Exam General Appearance: WD/WN, alert, no apparent distress, non-toxic Respiratory: lungs clear, normal breath sounds, No respiratory distress Cardiac/Chest: regular rate, rhythm, No tachycardia Skin: normal color, warm/dry, No rash Neuro/Psych: alert, normal mood/affect, oriented x 3 ICD10 Worksheet Patient Problems: Problems Problem Status Onset Pneumonia Acute Severe sepsis Acute Shortness of breath Acute
--- NOTE | 2017-03-26 15:56 | ASMTCMCOM ---
CM Note CM Note Notes: I spoke with patient about discharge planning. Per patient, he has been in touch with his parents in [place] and they are willing to have him come stay with them for awhile. Patient seems to be committed to lifestyle changes and knows that he needs to leave [place] in order to make them. He said that he will either fly or take a bus to [place]. I encouraged him to start formulating a plan since it might be challenging to coordinate his discharge from hospital directly to bus/airport. Both patient and I agree that he should have a discharge plan that does not allow for any idle time in [place]. I offered to help patient with coordination if he can communicate with his parents. Per hospitalist, he is nearing d/c, perhaps in 2 days, when he has better respiratory status. He also needs to ambulate and work with PT more. Today, ID switched him to oral antibiotics. CM to follow. Date Signed: 03/26/2017 03:55 PM Electronically Signed By:Tonya Lake RN
--- NOTE | 2017-03-26 17:57 | SOAPPROG ---
SOAP Progress Note Assessment/Plan: Assessment: 51-year-old chronic alcoholic admitted 03/17 with severe pneumonia and septic shock. He had progressive respiratory failure and was intubated in the afternoon on 03/18. He had little in the way of secretions. Cultures have grown out Acinetobacter. He slowly improved on the ventilator and was extubated 03/21. Stable since, with continued impressive infiltrates on the left. Transferred to a medical-surgical bed on 03/24. Looking at a assisted facility on discharge. * Septic Shock: Due to acinetobacter pneumonia. Resolved, on norepinephrine initially. * Acinetobacter Pneumonia: On Meropenem. Chest x-ray shows persistent infiltrates L>R. but clinically and by x-ray he continues to improve. * Hypercarbic and hypoxemic respiratory failure: On 3-4 L. * Thrombocytopenia: Resolving, Severe initially. 70K today. No bleeding. * Hypoglycemia: Resolved, glucoses okay. Vitamin C may have affected point of care glucose measurements. * Increased bilirubin and LFTs. Improving. Probably secondary to EtOH, possibly medications? No surgical issues identified by ultrasound or CT scan. * ETOH: On CIWA post extubation. No evidence of withdrawal. Off CIWA. * Sinus tachycardia: Resolving. * Nutrition: On orals. * Hypernatremia: Resolved * Disposition: SNF being considered, but with daily improvement he may be able to go home by early next week? Plan: Continue care, continue antibiotics and bronchopulmonary therapies. Follow lab, CBC, LFTs CXR intermittently. Increase mobilization as tolerated. Continue Lasix diuresis. Continue to work on disposition and SNF if indicated. Subjective: not happy. Wants to go home. No specific complaints. Overall less short of breath, stronger, ambulating on his own. Still on oxygen with desaturations into the low 80s on room air with light activity. Objective: Vital Signs Temp Pulse Resp BP Pulse Ox 36.8 C 90 18 101/63 94 03/26/17 15:49 03/26/17 16:23 03/26/17 16:23 03/26/17 15:49 03/26/17 16:23 Microbiology 03/20/17 14:12 Blood Culture - Final Blood 03/20/17 12:19 Blood Culture - Final Blood Laboratory Results 03/25/17 06:20 03/26/17 04:45 03/25/17 03/26/17 03/27/17 05:59 05:59 05:59 Intake Total 572 Output Total 350 1 Balance 222 -1 PT 14.2 SEC (12.0-15.0) 03/21/17 06:05 INR 1.11 (0.83-1.16) 03/21/17 06:05 CXR: Improving bilateral infiltrates. Physical Exam - Physical Exam General Appearance: alert, no apparent distress EENT: PERRL/EOMI, other ( Nasal cannula at 3-4 L) Neck: normal inspection ( no JVD) Respiratory: decreased breath sounds ( bilaterally), rales ( few rales at left base.), No rhonchi, No wheezing Cardiac/Chest: regular rate, rhythm, systolic murmur, No gallop Abdomen: normal bowel sounds, non-tender, soft Skin: normal color, warm/dry Extremities: pedal edema ( Trace) Neuro/Psych: no motor/sensory deficits, No cognition abnormalities ICD10 Worksheet Patient Problems: Problems Problem Status Onset Shortness of breath Acute Pneumonia Acute Severe sepsis Acute
[2017-03-26 19:08] LABS: POTASSIUM 2.9 mEq/L (3.5-5.2)
[2017-03-26] MEDS ORDERED: POTASSIUM CL 10 MEQ TAB PO ONE (19:44)
[2017-03-27 05:12] LABS: POTASSIUM 3.3 mEq/L (3.5-5.2)
[2017-03-27] MEDS: MEROPENEM 1 GM in NS 100 ML IV SCH (05:28)
[2017-03-27] MEDS: IPRATROPIUM/ALBUTEROL 3 ML DEYVIAL IH SCH ×4 (06:25→20:39)
[2017-03-27] MEDS ORDERED: POTASSIUM CL 10 MEQ TAB PO ONE ×2 (07:10→19:30)
[2017-03-27] MEDS: FUROSEMIDE 40 MG/4 ML VIAL IVP SCH (07:56)
[2017-03-27] MEDS: THIAMINE HCL 100 MG TAB PO SCH (07:57)
[2017-03-27] MEDS: FAMOTIDINE 20 MG TAB PO SCH ×2 (07:57→20:43)
[2017-03-27] MEDS: NICOTINE 14 MG/24 HR PATCH TD SCH (07:57)
[2017-03-27] MEDS: INSULIN LISPRO 100 UNIT/ML SC SCH ×3 (07:58→18:29)
--- NOTE | 2017-03-27 09:17 | HOSPPROG ---
Hospitalist Progress Note Assessment/Plan: patient is a 51-year-old male who presented on March 17 to the emergency room shortness of breath, cough and left-sided chest wall pain. He has a history of alcohol abuse. He was noted to be septic on admission with associated Acinetobacter bacteremia on admission. *sepsis with associated septic shock source is pna and bacteremia was requiring pressors in the ICU/ now stabilized and off of them *Acinetobacter bacteremia with left side pneumonia. 0n Meropenem 1 gm IV q 8h #9 (dc today) change to Levaquin today per ID 2 weeks of abx therapy *left lower lobe pna Merrem/now on Levaquin *Hypoxemia chest xray shows some improvement improved with getting Lasix * Elevated troponin likely secondary to demand ischemia from the acute illness echocardiogram okay * hypernatremia resolved r * DIC platelets improving * hypoglycemia resolved * acidosis improving * elevated liver function test secondary to acute illness, hepatic steatosis and some gall bladder wall thickening continue monitoring * alcohol abuse no signs or symptoms of withdrawals *electrolyte abnormalities *nicotine dependence has a patch, will add gum to see if this helps * DVT prophylaxis Lovenox not initiated due to low platelet counts and DIC *Plan: patient is close to ready to dc, call into pulmonology about changing iv steroids to oral/ sats on room air are 90%/will ask CM to call his mom to update her Subjective: Rufino is feeling much better today/no complaints. Objective: Vital Signs Temp Pulse Resp BP Pulse Ox 36.8 C 91 18 111/69 88 L 03/27/17 07:34 03/27/17 07:34 03/27/17 07:34 03/27/17 07:34 03/27/17 07:34 Microbiology 03/20/17 14:12 Blood Culture - Final Blood 03/20/17 12:19 Blood Culture - Final Blood Laboratory Results 03/25/17 06:20 03/27/17 04:38 03/26/17 03/27/17 03/28/17 05:59 05:59 05:59 Intake Total 572 Output Total 350 1 Balance 222 -1 PT 14.2 SEC (12.0-15.0) 03/21/17 06:05 INR 1.11 (0.83-1.16) 03/21/17 06:05 - Physical Exam Constitutional: chronically ill appearing, unkempt Eyes: PERRL Ears, Nose, Mouth, Throat: hearing normal Cardiovascular: regular rate and rhythym Respiratory: no respiratory distress (lung sounds much improved) Skin: warm, normal color Musculoskeletal: generalized weakness Neurologic: AAOx3 Psychiatric: interacting appropriately ICD10 Worksheet Patient Problems: Problems Problem Status Onset Pneumonia Acute Severe sepsis Acute Shortness of breath Acute
[2017-03-27] MEDS ORDERED: D10W 250 ML PRN HYPOGLYCEMIA IV (15:00)
--- NOTE | 2017-03-27 15:36 | PCMIDPN ---
Assessment/Plan: Assessment: Sepsis secondary to Acinetobacter bacteremia due to pneumonia. Patient continues to show clinical improvement. 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 Would complete a 2 week course of treatment. No need to follow up with repeat blood cultures. Complication to discharge is hypoxemia at rest. Plan: 1. Change therapy from meropenem to Levaquin. 2. Follow clinical improvement. 03/27/17 15:35 Subjective: Patient is resting in his hospital bed. He still requires oxygen by face mask in order to saturate in the low 90s. Otherwise occasional cough minimally productive. No fevers. Objective: Levaquin # 2 Vital Signs Temp Pulse Resp BP Pulse Ox 36.8 C 91 18 111/69 82 L 03/27/17 07:34 03/27/17 07:34 03/27/17 07:34 03/27/17 07:34 03/27/17 12:52 Laboratory Results 03/25/17 06:20 03/27/17 04:38 03/26/17 03/27/17 03/28/17 05:59 05:59 05:59 Intake Total 572 Output Total 350 1 Balance 222 -1 - Physical Exam General Appearance: WD/WN, alert, no apparent distress, non-toxic Respiratory: lungs clear, normal breath sounds, No respiratory distress, No stridor, No wheezing Cardiac/Chest: regular rate, rhythm, No tachycardia Skin: normal color, warm/dry, No rash Neuro/Psych: alert, normal mood/affect, oriented x 3 ICD10 Worksheet Patient Problems: Problems Problem Status Onset Pneumonia Acute Severe sepsis Acute Shortness of breath Acute
--- NOTE | 2017-03-27 16:09 | SOAPPROG ---
SOAP Progress Note Assessment/Plan: Assessment: 51-year-old chronic alcoholic admitted 03/17 with severe pneumonia and septic shock. He had progressive respiratory failure and was intubated in the afternoon on 03/18. He had little in the way of secretions. Cultures have grown out Acinetobacter. He slowly improved on the ventilator and was extubated 03/21. Stable since, with continued impressive infiltrates on the left. Transferred to a medical-surgical bed on 03/24. Looking at a [facility] facility on discharge verses possible discharge to "home" in [place] with his parents. * Septic Shock: Due to acinetobacter pneumonia. Resolved, on norepinephrine initially. * Acinetobacter Pneumonia: On Meropenem, with switch to Levaquin orally today. Chest x-ray 03/26 showed significant improvement. Clinically he is doing much better.. * Hypercarbic and hypoxemic respiratory failure: On 3 L. * Thrombocytopenia: Severe initially, improving. 70K on last check. No bleeding. * Hypoglycemia: Resolved, glucoses okay. Vitamin C may have affected point of care glucose measurements. * Increased bilirubin and LFTs. Improving. Probably secondary to EtOH, possibly medications? No surgical issues identified by ultrasound or CT scan. * ETOH: On CIWA post extubation. No evidence of withdrawal. Off CIWA. * Sinus tachycardia: Resolved. * Nutrition: Eating. * Hypernatremia: Resolved * Disposition: SNF being considered, however patient is significantly stronger now and relatively independent. He does not want to go to a SNF, and as he is significantly improved, much stronger, he may not need one. Plan: Continue care, continue Levaquin for a total course of antibiotics of 2 weeks, continue bronchopulmonary therapies. Repeat chest x-ray prior to discharge along with lab, CBC, LFTs. Continue to mobilize. Continue Lasix diuresis while here secondary to significant volume overload associated with fluid resuscitation. Continue to work on disposition to home as above or SNF if needed. Discussed with hospitalist and social work. Subjective: Feels better, stronger. Denies significant shortness of breath. Wearing oxygen intermittently. Still has some pulmonary congestion, able to cough up some mucus intermittently. Objective: Vital Signs Temp Pulse Resp BP Pulse Ox 37.8 C 95 20 93/51 L 96 03/27/17 15:40 03/27/17 15:40 03/27/17 15:40 03/27/17 15:40 03/27/17 15:40 Laboratory Results 03/25/17 06:20 03/27/17 04:38 03/26/17 03/27/17 03/28/17 05:59 05:59 05:59 Intake Total 572 Output Total 350 1 Balance 222 -1 PT 14.2 SEC (12.0-15.0) 03/21/17 06:05 INR 1.11 (0.83-1.16) 03/21/17 06:05 Physical Exam - Physical Exam General Appearance: alert, no apparent distress, other EENT: PERRL/EOMI, other (OxyMask partially in place) Neck: normal inspection Respiratory: decreased breath sounds (Bilaterally), rales (Rales over the lateral left lung inferiorly, fairly clear on the right), prolonged expiration, No rhonchi (Mild congestion with cough), No wheezing Cardiac/Chest: regular rate, rhythm Abdomen: normal bowel sounds, non-tender, soft Skin: normal color, warm/dry Extremities: No pedal edema Neuro/Psych: no motor/sensory deficits, No cognition abnormalities ICD10 Worksheet Patient Problems: Problems Problem Status Onset Shortness of breath Acute Pneumonia Acute Severe sepsis Acute
--- NOTE | 2017-03-27 16:23 | ASMTCMCOM ---
CM Note CM Note Notes: Met with patient again today to discuss discharge. Patient still wants to go to [place] where his parents live. He said he has been speaking with them daily and that they support him coming back. I called them today and left a message. Per my conversation with patient yesterday, he said that they would buy his bus ticket. Hospitalist and life educator support this plan and agree that we should provide patient with a bus voucher to [employer] [facility] where he can get [employer]. Patient seems committed to making lifestyle changes and has been cooperative. Likely d/c tomorrow. D/C plan is to confirm with patient and his parents that they have arranged transport to [place], and we will assist with getting patient to bus station. Date Signed: 03/27/2017 04:22 PM Electronically Signed By:Tonya Lake RN
[2017-03-27 18:36] LABS: POTASSIUM 3.5 mEq/L (3.5-5.2)
[2017-03-28] MEDS: IPRATROPIUM/ALBUTEROL 3 ML DEYVIAL IH SCH ×2 (04:35→11:22)
[2017-03-28 05:21] LABS: POTASSIUM 3.9 mEq/L (3.5-5.2)
[2017-03-28 06:14] LABS: HEMOGLOBIN A1C 5.1 % (4.0-6.0)
--- NOTE | 2017-03-28 08:23 | HOSPPROG ---
Hospitalist Progress Note Assessment/Plan: patient is a 51-year-old male who presented on March 17 to the emergency room shortness of breath, cough and left-sided chest wall pain. He has a history of alcohol abuse. He was noted to be septic on admission with associated Acinetobacter bacteremia on admission. *sepsis with associated septic shock source is pna and bacteremia was requiring pressors in the ICU/ now stabilized and off of them *Acinetobacter bacteremia with left side pneumonia. 0n Meropenem 1 gm IV q 8h #9 (dc) Levaquin #2 per ID 2 weeks of abx therapy *left lower lobe pna Merrem/now on Levaquin *Hypoxemia chest xray shows some improvement improved with getting Lasix oxygen levels vary/ long hx of smoking/copd * Elevated troponin likely secondary to demand ischemia from the acute illness echocardiogram okay * hypernatremia resolved r * DIC platelets improving * hypoglycemia resolved * acidosis improving * elevated liver function test secondary to acute illness, hepatic steatosis and some gall bladder wall thickening continue monitoring * alcohol abuse no signs or symptoms of withdrawals *electrolyte abnormalities *nicotine dependence has a patch, will add gum to see if this helps * DVT prophylaxis Lovenox not initiated due to low platelet counts and DIC *Plan:Case management working with placement of the patient. Lázaro does not want to go to a [facility] facility. Currently he has been talking to his mom and he says the plan is for him to go to [place]. This could be difficult to arrange. Subjective: Lázaro is feeling well. Has no complaints. Objective: Vital Signs Temp Pulse Resp BP Pulse Ox 36.3 C 92 16 109/63 92 03/28/17 00:00 03/28/17 00:00 03/28/17 00:00 03/28/17 00:00 03/28/17 00:00 Laboratory Results 03/25/17 06:20 03/28/17 04:48 03/27/17 03/28/17 03/29/17 05:59 05:59 05:59 Output Total 1 Balance -1 PT 14.2 SEC (12.0-15.0) 03/21/17 06:05 INR 1.11 (0.83-1.16) 03/21/17 06:05 - Physical Exam Constitutional: no apparent distress, appears nourished, not in pain Eyes: PERRL Ears, Nose, Mouth, Throat: hearing normal Respiratory: no respiratory distress Skin: warm Musculoskeletal: full muscle strength Neurologic: AAOx3 Psychiatric: interacting appropriately, not anxious, not encephalopathic, thought process linear ICD10 Worksheet Patient Problems: Problems Problem Status Onset Pneumonia Acute Severe sepsis Acute Shortness of breath Acute
[2017-03-28 08:53] VITALS: BP 108/77; TEMP 98.1
[2017-03-28] MEDS: FUROSEMIDE 40 MG/4 ML VIAL IVP SCH (09:33)
[2017-03-28] MEDS: FAMOTIDINE 20 MG TAB PO SCH (09:34)
[2017-03-28] MEDS: THIAMINE HCL 100 MG TAB PO SCH (09:34)
[2017-03-28] MEDS: NICOTINE 14 MG/24 HR PATCH TD SCH (09:34)
[2017-03-28] MEDS: INSULIN LISPRO 100 UNIT/ML SC SCH (09:39)
[2017-03-28 11:30] VITALS: PULSE 105; RESP 18; O2SAT 90
[2017-03-28] MEDS ORDERED: POTASSIUM CL 10 MEQ TAB PO ONE (11:47)
--- NOTE | 2017-03-28 12:49 | GDS ---
[f rep st] DISCHARGE SUMMARY DISCHARGE DIAGNOSES: 1. Sepsis with associated septic shock. 2. Acinetobacter bacteremia with left-sided pneumonia. 3. Left lower lobe pneumonia. 4. Hypoxemia. 5. Elevated troponin. 6. Hyponatremia. 7. Disseminated intravascular coagulation. 8. Hypoglycemia with episodes of hyperglycemia. 9. Acidosis. 10. Elevated liver function tests. 11. Alcohol abuse. 12. Electrolyte abnormalities. 13. Nicotine dependence. CONSULTATIONS DURING HIS STAY: 1. Dr. Benja Carnes. 2. Dr. Christelle Coombs. HISTORY AND HOSPITAL COURSE: Briefly, the patient is a 51-year-old male with limited past medical hi story. He is homeless. He presented to the emergency room with a sudden onset of shortness of breat h, nonproductive cough, and left-sided chest pain. This came on sudden. On admission, he was tachyc ardic and afebrile, presumed to be related to the pneumonia. Blood cultures were checked, and he gre w out Acinetobacter, and was treated with antibiotics. His next set of blood cultures, on the , did not have any further growth. His stay was complicated in that he is an alcoholic and is homeless . He was in the intensive care unit because he was septic. Treated with pressors in the intensive c are unit. He also was requiring a significant amount of oxygen. Over his stay, he improved. Today, he is on room air. His mind is clear. He is no longer withdrawing from alcohol. The plan is for shayy im to take a bus this afternoon to return to the [place] area. His mom has been very involved and is willing to give her son the support he needs to stay sober. HOSPITAL COURSE PER PROBLEM: 1. Sepsis with associated septic shock. His source is the pneumonia. This has resolved. He is sta ble. 2. Acinetobacter bacteremia, with left-sided pneumonia. He was initially treated with meropenem. Shayy allen will be discharged home on Levaquin. 3. Left lower lobe pneumonia, on Levaquin. 4. Hypoxemia, resolved. His oxygen levels on room air are 90% to 92%. 5. Elevated troponin. This is secondary to demand ischemia from his acute illness. His echocardiog mark is stable. 6. Hyponatremia, resolved. 7. DIC. Platelets have improved. 8. Hypoglycemia, due to acute illness, resolved. 9. Acidosis, improving. 10. Elevated liver function tests. He has some hepatic steatosis and some gallbladder wall thickeni ng. Further follow up at home. 11. Alcohol abuse. No signs or symptoms of withdrawal. 12. Electrolyte abnormalities, stable. 13. Nicotine dependence. Have asked Case Management to give him a couple patches to hold until he r eturns to the [place] area. CONDITION AT DISCHARGE: Stable. Blood pressure is 108/77, heart rate is 89, respiratory rate is 14, O2 saturation on room air 92%, temperature is 36.7 Celsius. MEDICATIONS AT DISCHARGE: Please see the EMR. DISCHARGE INSTRUCTIONS: 1. To take the antibiotics as prescribed. The hospital will fill these. 2. To follow up with a physician in the [place] area. He will need to get a repeat chest x-ray and labs repeated. 3. If he develops fever, chills, chest pain, or shortness of breath, return to the ER. 4. To stop all alcohol use. It is ruining his life. 5. To continue stop smoking. He is already through withdrawing from cigarettes in addition. 6. Greater than 30 minutes discharging and coordinating care. Copy requested to: Dr. Edmond /[id number]/MODL
--- NOTE | 2017-03-28 16:01 | ASDISCHSUM ---
Discharge Information Plan Status:Home with No Needs Medically Cleared to Leave:03/28/2017 Discharge Date:03/28/2017 01:51 PM CM D/C Disposition:Home, Routine, Self-Care ADT D/C Disposition:Home, Routine, Self-Care Projected Discharge Date:03/28/2017 11:00 AM Transportation at D/C: Discharge Delay Reason: Follow-Up Date:03/28/2017 11:00 AM Discharge Slot: Final Diagnosis: Placement Information Referral Type:*Halfway/SNF Referral ID:[id number] Provider Name: Address 1: Phone Number: Address 2: Fax Number: City: Selection Factors: State: Patient Contact Information Contact Name:GRACIA Relationship: Address: Home Phone: Work Phone: City: Alternate Phone: [facility] Code: Email: Financial Information Financial Class: Primary Plan Desc:[employer]ICA[employer] [place] Primary Plan Number:[id number] Secondary Plan Desc: Secondary Plan Number: Assessment Information [facility] CM Progress Note CM Note CM Note Notes: Pt. is a 51-year-old man admitted with sudden shortness of breath, PNA, hypokalemia, Aflutter, and septic shock. Pt. intubated. Pt. is homeless per chart. SILVIA/TED to follow for d/c POC. Date Signed: 03/19/2017 04:17 PM Electronically Signed By:Arianna Lopez LCSW [facility] CM Progress Note CM Note CM Note Notes: Patient was extubated today. He is taking multiple antibiotics to address the source of his septic shock. Also on pressors. He is beginning to communicate more but is still very hard to understand. He does not seem to have a relationship with either the [facility] or [facility], although I have placed a call to both to confirm. He mumbled that he has a friend named "Yong" but that this person is homeless as well. No therapies have been ordered, and during past ED visits, patient has discharged back to the streets. CM will follow. Date Signed: 03/21/2017 02:24 PM Electronically Signed By:Tonya Lake RN [facility] CM Progress Note CM Note CM Note Notes: Patient with markedly different affect and ability to communicate today. He was able to tell me that he has been homeless in [place] for a few months after getting asked to leave his parents home in [place] early this summer. According to the patient, he has had many periods of sobriety and employment (he was last employed in [place] 01/16 - 10/18). He is currently hanging out with a man named "Rosa" who he alternately calls his friend and says is stealing money from him. Rosa called patient today but patient did not want to speak to him. Patient gave me his parent's phone number ([phone]), and I spoke with his mother Enid who has been worried about him. She corroborates his story and expresses guilt that she can't help him more. I spoke with patient at length today about the severity of his condition right now and the impossibility of him returning to the streets. I spoke about the option of a 30 day Medicaid stay at a SNF to which he did not respond. I explained that the hospital would not recommend that he return to the streets in his debilitated condition. I started the paperwork needed for a SNF stay but patient was not able to complete it. CM will continue to follow and hopefully be able to implement a safe discharge plan for patient. Date Signed: 03/23/2017 03:39 PM Electronically Signed By:Tonya Lake RN [facility] CM Progress Note CM Note CM Note Notes: Met w/pt initially in AM who was somewhat agitated, difficult to talk with, and wanting to go out for smoke. Met w/pt later in day and he was much calmer and able to easily have conversation with him about dc poc. Pt said he had talked w/his Mom and Dad on phone which really helped (they live in [place]). Pt said it is fine for us to share info with his parents. Pt is agreeable to SNF placement, did not have a specific facility in mind, will send out referrals. Pt would like to go to SNF in [facility] if possible. UL-100 completed and faxed. TED w/f. Date Signed: 03/24/2017 04:05 PM Electronically Signed By:Chen Nagy RN [facility] CM Progress Note CM Note CM Note Notes: Referrals faxed to [facility] and [facility] for SNFplacement. Date Signed: 03/24/2017 04:33 PM Electronically Signed By:Chen Nagy RN [facility] CM Progress Note CM Note CM Note Notes: I spoke with patient about discharge planning. Per patient, he has been in touch with his parents in [place] and they are willing to have him come stay with them for awhile. Patient seems to be committed to lifestyle changes and knows that he needs to leave [place] in order to make them. He said that he will either fly or take a bus to [place]. I encouraged him to start formulating a plan since it might be challenging to coordinate his discharge from hospital directly to bus/airport. Both patient and I agree that he should have a discharge plan that does not allow for any idle time in [place]. I offered to help patient with coordination if he can communicate with his parents. Per hospitalist, he is nearing d/c, perhaps in 2 days, when he has better respiratory status. He also needs to ambulate and work with PT more. Today, ID switched him to oral antibiotics. CM to follow. Date Signed: 03/26/2017 03:55 PM Electronically Signed By:Tonya Lake RN [facility] TED Progress Note CM Note CM Note Notes: Met with patient again today to discuss discharge. Patient still wants to go to [place] where his parents live. He said he has been speaking with them daily and that they support him coming back. I called them today and left a message. Per my conversation with patient yesterday, he said that they would buy his bus ticket. Hospitalist and non food receiving clerk support this plan and agree that we should provide patient with a bus voucher to [employer] where he can get [employer]. Patient seems committed to making lifestyle changes and has been cooperative. Likely d/c tomorrow. D/C plan is to confirm with patient and his parents that they have arranged transport to [place], and we will assist with getting patient to bus station. Date Signed: 03/27/2017 04:22 PM Electronically Signed By:Tonya Lake RN Intervention Information
== END 2017-03-28 13:51 | disposition home or self-care (01) | DRG 871 ==
LOC: EDUNIT# → F2N 16:44 → F3E 03-24 16:50
PROVIDERS: ADMIT Hospitalist; ATTEND Internal Medicine
PROC: 02HV33Z Insertion of Infusion Device into Superior Vena Cava, Percutaneous Approach (ICD-10-PCS; 2017-03-17)
PROC: 0BH17EZ Insertion of Endotracheal Airway into Trachea, Via Natural or Artificial Opening (ICD-10-PCS; principal; 2017-03-18)
PROC: 02HV33Z Insertion of Infusion Device into Superior Vena Cava, Percutaneous Approach (ICD-10-PCS; 2017-03-20)
PROC: 3E03329 Introduction of Other Anti-infective into Peripheral Vein, Percutaneous Approach (ICD-10-PCS; 2017-03-20)
PROC: 0DH67UZ Insertion of Feeding Device into Stomach, Via Natural or Artificial Opening (ICD-10-PCS; 2017-03-20)
PROC: 5A09457 Assistance with Respiratory Ventilation, 24-96 Consecutive Hours, Continuous Positive Airway Pressure (ICD-10-PCS; 2017-03-20)
PROC: 3E0337Z Introduction of Electrolytic and Water Balance Substance into Peripheral Vein, Percutaneous Approach (ICD-10-PCS; 2017-03-20)
PROC: 3E033XZ Introduction of Vasopressor into Peripheral Vein, Percutaneous Approach (ICD-10-PCS; 2017-03-20)
PROC: 30233R1 Transfusion of Nonautologous Platelets into Peripheral Vein, Percutaneous Approach (ICD-10-PCS; 2017-03-20)
PROC: HZ2ZZZZ Detoxification Services for Substance Abuse Treatment (ICD-10-PCS; 2017-03-20)
DX: A41.59 Other Gram-negative sepsis (principal); R65.21 Severe sepsis with septic shock; J15.6 Pneumonia due to other Gram-negative bacteria; B96.89 Other specified bacterial agents as the cause of diseases classified elsewhere; J96.01 Acute respiratory failure with hypoxia; J96.02 Acute respiratory failure with hypercapnia; N17.9 Acute kidney failure, unspecified; E87.0 Hyperosmolality and hypernatremia; R79.89 Other specified abnormal findings of blood chemistry; D65 Disseminated intravascular coagulation [defibrination syndrome]; T82.898A Other specified complication of vascular prosthetic devices, implants and grafts, initial encounter; G93.40 Encephalopathy, unspecified; E16.2 Hypoglycemia, unspecified; E87.2 Acidosis; E87.6 Hypokalemia; E87.8 Other disorders of electrolyte and fluid balance, not elsewhere classified; R94.5 Abnormal results of liver function studies; E86.1 Hypovolemia; F10.239 Alcohol dependence with withdrawal, unspecified; F17.210 Nicotine dependence, cigarettes, uncomplicated; I48.92 Unspecified atrial flutter; I45.10 Unspecified right bundle-branch block; R74.0 Nonspecific elevation of levels of transaminase and lactic acid dehydrogenase [LDH]; K76.0 Fatty (change of) liver, not elsewhere classified; K70.31 Alcoholic cirrhosis of liver with ascites; Z59.0 Homelessness
CPT/HCPCS: 82947-QW; 92523-GN; 92526-GN; 92610-GN; 96365; 97116-GP; 97163-GP; 97165-GO; 97530-GO; 97532-GO; 97535-GO; C1751; G0472; J0153; J0696; J1335; J1815; J1940; J1956; J2060; J2185; J2250; J2704; J2997; J3010; J3411; J3475; P9035; P9041; P9047; Q9967